=== PATIENT | male | born 1965 | race Caucasian/White ===

== ENCOUNTER 2022-02-06 15:32 | Emergency (ER) | payer OTHER ==
[2022-02-06 16:27] VITALS: PULSE 102; RESP 20; TEMP 98.1
--- NOTE | 2022-02-06 17:02 | ED ---
General Adult HPI - General Chief complaint: Psychiatric Symptoms Stated complaint: Mental Health Time Seen by Provider: 02/06/22 16:47 Source: patient, RN notes reviewed, old records reviewed Mode of arrival: ambulatory Limitations: no limitations - History of Present Illness Initial comments: 56-year-old male presented emergency department for evaluation. Patient is presenting at the request of his counselor. He has voiced thoughts of suicide with a plan to take alcohol and pills. He has not had a suicide attempt. He reports increased anxiety and depression. He states he has not been sleeping well. He is dealing with a great deal of stress currently. - Related Data Home Medications Medication Instructions Recorded Confirmed No Known Home Medications 02/06/22 02/06/22 Allergies Allergy/AdvReac Type Severity Reaction Status Date / Time No Known Allergies Allergy Verified 02/06/22 18:52 Review of Systems ROS Statement: Those systems with pertinent positive or pertinent negative responses have been documented in the HPI. ROS Other: All systems not noted in ROS Statement are negative. Past Medical History Past Medical History: No Reported History Past Surgical History: No Surgical Hx Reported Smoking Status: Current every day smoker Past Alcohol Use History: None Reported Past Drug Use History: None Reported General Exam Limitations: no limitations General appearance: alert, anxious Head exam: Present: atraumatic, normocephalic Eye exam: Present: normal appearance, PERRL ENT exam: Present: normal exam Neck exam: Present: normal inspection. Absent: tenderness, meningismus Respiratory exam: Present: normal lung sounds bilaterally. Absent: respiratory distress, wheezes Cardiovascular Exam: Present: regular rate, normal rhythm GI/Abdominal exam: Present: soft. Absent: distended, guarding, rebound Extremities exam: Present: normal inspection, normal capillary refill. Absent: pedal edema Neurological exam: Present: alert, oriented X3, CN II-XII intact. Absent: motor sensory deficit Psychiatric exam: Present: anxious, suicidal ideation Skin exam: Present: warm, dry, intact Course Vital Signs 02/06/22 16:20 Temperature 98.1 F Pulse Rate 102 H Respiratory 20 Rate Blood Pressure 140/100 O2 Sat by Pulse 97 Oximetry Medical Decision Making - Medical Decision Making Patient had been medically cleared he was evaluated by EPS and felt to be safe for discharge. I agree with this assessment. He has follow-up with his counselor tomorrow. Return parameters are discussed. The patient patient has signed a safety contract. - Lab Data Lab Results 02/06/22 Range/Units 17:17 Urine Opiates Screen Not Detected (NotDetected) Ur Oxycodone Screen Not Detected (NotDetected) Urine Methadone Screen Not Detected (NotDetected) Ur Propoxyphene Screen Not Detected (NotDetected) Ur Barbiturates Screen Not Detected (NotDetected) U Tricyclic Antidepress Not Detected (NotDetected) Ur Phencyclidine Scrn Not Detected (NotDetected) Ur Amphetamines Screen Not Detected (NotDetected) U Methamphetamines Scrn Not Detected (NotDetected) U Benzodiazepines Scrn Detected H (NotDetected) Urine Cocaine Screen Not Detected (NotDetected) U Marijuana (THC) Screen Not Detected (NotDetected) Disposition Clinical Impression: Depression Disposition: HOME SELF-CARE Condition: Fair Instructions (If sedation given, give patient instructions): Depression (ED) Is patient prescribed a controlled substance at d/c from ED?: No Referrals: Yolanda Bassett MD [Primary Care Provider] - 1-2 days Time of Disposition: 20:32
[2022-02-06 18:09] LABS: Amphetamine Screen,Urine Not Detected (NotDetected); Barbiturate Screen,Urine Not Detected (NotDetected); Benzodiazepines Screen,Urine Detected (NotDetected); Cocaine Screen,Urine Not Detected (NotDetected); Methadone Screen, Urine Not Detected (NotDetected); Opiate Screen,Urine Not Detected (NotDetected); Oxycodone Screen, Urine Not Detected (NotDetected); Phencyclidine Screen,Urine Not Detected (NotDetected); Tricyclic Antidepressant,Urine Not Detected (NotDetected); Urn Cannabinoid Scrn Not Detected (NotDetected)
[2022-02-06 20:51] VITALS: BP 138/98
== END 2022-02-06 20:52 | disposition home or self-care (01) ==
LOC: EC 15:32
DX: F32.A Depression, unspecified (principal); F17.200 Nicotine dependence, unspecified, uncomplicated
CPT/HCPCS: 80306; 82075; 99284

== ENCOUNTER 2022-02-10 00:06 | Inpatient (IN) | payer OTHER ==
[2022-02-10 03:21] LABS: Appearance,Urine Clear (Clear); Bilirubin,Urine Negative (Negative); Blood,Urine Negative (Negative); Color,Urine Light Yellow; Glucose,Urine (UA) Negative (Negative); Ketones,Urine Negative (Negative); Leukocyte Esterase,Urine Negative (Negative); Nitrite,Urine Negative (Negative); PH, Urine 6.5 (5.0-8.0); Protein,Urine Negative (Negative); Urobilinogen,Urine <2.0 mg/dL (<2.0)
[2022-02-10 03:35] LABS: Amphetamine Screen,Urine Not Detected (NotDetected); Barbiturate Screen,Urine Not Detected (NotDetected); Benzodiazepines Screen,Urine Detected (NotDetected); Cocaine Screen,Urine Not Detected (NotDetected); Methadone Screen, Urine Not Detected (NotDetected); Opiate Screen,Urine Not Detected (NotDetected); Oxycodone Screen, Urine Not Detected (NotDetected); Phencyclidine Screen,Urine Not Detected (NotDetected); Tricyclic Antidepressant,Urine Not Detected (NotDetected); Urn Cannabinoid Scrn Detected (NotDetected)
[2022-02-10] MEDS ORDERED: ACETAMINOPHEN TAB 325 MG TAB PO PRN (06:44)
[2022-02-10] MEDS ORDERED: MAG HYDROX/AL HYDROX/SIMETH 30 ML CUP PO PRN (06:44)
[2022-02-10] MEDS ORDERED: MAGNESIUM HYDROXIDE 2,400 MG/10 ML CUP PO PRN (06:44)
[2022-02-10] MEDS ORDERED: hydrOXYzine pamoate 25 MG CAP PO PRN (06:49)
[2022-02-10] MEDS ORDERED: hydrOXYzine HCL 50 MG/ML 1 ML VIAL IM PRN (06:49)
[2022-02-10] MEDS ORDERED: OLANZapine 10 MG VIAL IM PRN (06:51)
[2022-02-10] MEDS ORDERED: OLANZapine 5 MG TAB PO PRN (06:51)
--- NOTE | 2022-02-10 07:19 | P.MDCNMH ---
History of Present Illness H&P Date: 02/10/22 Chief Complaint: Anxiety Patient is a 56-year-old male. He was brought in to our psychiatric facility via EMS. Patient states that he was having increased level of anxiety and insomnia. He reported that he could not take the pain away. Currently he denies any suicidal ideation he denies any previous attempts of trying to hurt himself. He denies any medical history he reports that he has not seen a physician in a long time. Review of Systems All systems: negative Past Medical History Past Medical History: No Reported History History of Any Multi-Drug Resistant Organisms: None Reported Past Surgical History: No Surgical Hx Reported Smoking Status: Current every day smoker Medications and Allergies Home Medications Medication Instructions Recorded Confirmed Type No Known Home Medications 02/06/22 02/10/22 History Allergies Allergy/AdvReac Type Severity Reaction Status Date / Time No Known Allergies Allergy Verified 02/10/22 05:17 Physical Exam Osteopathic Statement: *. No significant issues noted on an osteopathic structural exam other than those noted in the History and Physical/Consult. Vitals: Vital Signs Temp Pulse Resp BP Pulse Ox 02/10/22 06:05 97.0 F L 79 16 138/81 95 Intake and Output 02/09/22 02/10/22 02/10/22 22:59 06:59 14:59 Other: Weight 67.358 kg - Constitutional General appearance: no acute distress - EENT Eyes: EOMI, PERRLA ENT: normal oropharynx - Neck Neck: normal ROM - Respiratory Respiratory: bilateral: CTA - Cardiovascular Rhythm: regular Heart sounds: normal: S1, S2 - Integumentary Integumentary: normal - Neurologic Neurologic: CNII-XII intact - Psychiatric Psychiatric: A&O x's 3 Cranial Nerve Examination - Cranial Nerves Cranial Nerve I- Olfactory: Intact Cranial Nerve II- Optic: Intact Cranial Nerve III- Oculomotor: Intact Cranial Nerve IV- Trochlear: Intact Cranial Nerve V- Trigeminal: Intact Cranial Nerve - Abducens: Intact Cranial Nerve VII- Facial: Intact Cranial Nerve VIII- Auditory: Intact Cranial Nerve IX- Glossopharyngeal: Intact Cranial Nerve X- Vagus: Intact Cranial Nerve XI- Accessory: Intact Cranial Nerve XII- Hypoglossal: Intact Results Labs: Abnormal Lab Results - Last 24 Hours (Table) 02/10/22 Range/Units 02:46 U Benzodiazepines Scrn Detected H (NotDetected) U Marijuana (THC) Screen Detected H (NotDetected) Assessment and Plan (1) Depression Current Visit: No Status: Acute Code(s): F32.A - DEPRESSION, UNSPECIFIED SNOMED Code(s): 52341567 Plan: Depression/anxiety -Management per inpatient psychiatric team -Current medications include olanzapine Tobacco abuse -He's on nicotine patch Patient states that he has not seen a primary care physician in a long time. Blood work is currently pending including TSH, hemoglobin A1c, lipid panel, comprehensive metabolic panel and a CBC. Medical team will follow as needed
[2022-02-10] MEDS: NICOTINE 14MG/24HR PATCH TRANSDERM SCH (08:44)
[2022-02-10] MEDS ORDERED: SERTRALINE 50 MG TAB PO STA (10:32)
--- NOTE | 2022-02-10 14:20 | P.HP ---
Psychiatric H&P - . H&P Date: 02/10/22 History & Physical: Allergies Allergy/AdvReac Type Severity Reaction Status Date / Time No Known Allergies Allergy Verified 02/10/22 05:17 Vital Signs Temp 97.0 F L 02/10/22 06:05 Pulse 79 02/10/22 06:05 Resp 16 02/10/22 06:05 BP 138/81 02/10/22 06:05 Pulse Ox 95 02/10/22 06:05 FiO2 Intake & Output 02/09/22 02/10/22 02/10/22 18:59 06:59 18:59 Weight 67.358 kg Laboratory Last Values Urine Color Light Yellow 02/10/22 02:46 Urine Appearance Clear (Clear) 02/10/22 02:46 Urine pH 6.5 (5.0-8.0) 02/10/22 02:46 Ur Specific [place] 1.010 (1.001-1.035) 02/10/22 02:46 Urine Protein Negative (Negative) 02/10/22 02:46 Urine Glucose (UA) Negative (Negative) 02/10/22 02:46 Urine Ketones Negative (Negative) 02/10/22 02:46 Urine Blood Negative (Negative) 02/10/22 02:46 Urine Nitrite Negative (Negative) 02/10/22 02:46 Urine Bilirubin Negative (Negative) 02/10/22 02:46 Urine Urobilinogen <2.0 mg/dL (<2.0) 02/10/22 02:46 Ur Leukocyte Esterase Negative (Negative) 02/10/22 02:46 Urine Opiates Screen Not Detected (NotDetected) 02/10/22 02:46 Ur Oxycodone Screen Not Detected (NotDetected) 02/10/22 02:46 Urine Methadone Screen Not Detected (NotDetected) 02/10/22 02:46 Ur Propoxyphene Screen Not Detected (NotDetected) 02/10/22 02:46 Ur Barbiturates Screen Not Detected (NotDetected) 02/10/22 02:46 U Tricyclic Antidepress Not Detected (NotDetected) 02/10/22 02:46 Ur Phencyclidine Scrn Not Detected (NotDetected) 02/10/22 02:46 Ur Amphetamines Screen Not Detected (NotDetected) 02/10/22 02:46 U Methamphetamines Scrn Not Detected (NotDetected) 02/10/22 02:46 U Benzodiazepines Scrn Detected (NotDetected) H 02/10/22 02:46 Urine Cocaine Screen Not Detected (NotDetected) 02/10/22 02:46 U Marijuana (THC) Screen Detected (NotDetected) H 02/10/22 02:46 Coronavirus (PCR) Not Detected (Not Detectd) 02/10/22 03:05 02/10/22 14:18 IDENTIFYING DATA: Patient is a , employed, 56-year-old male with no previous psychiatric history presented to the hospital for suicidal ideation HPI: Patient presented to the hospital on 02/10/2022, brought into the hospital for suicidal ideation and racing thoughts. The patient asked his children to call 911 and they did so out of a panic and concern for this patient. The patient reported to the EPS nurse that he "did not want to do this anymore. I don't want to think. I don't want to feel. I want to go to sleep and never wake up. I just can't do this anymore. It hurts." The patient does report that he has been feeling increasing stress in regards to his personal life as well as work life. He reports that he is currently having problems with his spends much of [place] the [facility] in December and June. The patient also expresses that he's been feeling stressed about his daughter who is getting . He reports that normally is able to throw himself into work in order to cope however he has been unable to do so. In regards to psychiatric symptoms, the patient reports significant symptoms of depression and anxiety. He does report very poor sleep, constant preoccupied thoughts, racing thoughts, sadness, decreased motivation, and extreme anxiety. Although the patient did endorse suicidal ideation while in the emergency department, the patient said ideation. He expresses that he does not really need to be admitted to the psychiatric unit. However after significant discussion, the patient was agreeable to signing himself onto the psychiatric unit. In regards to other psych symptoms, the patient denies any significant history of bipolar disorder. He reports no periods of excessive energy, grandiosity, or severe mood swings. The patient denies any auditory or visual hallucinations. He reports no paranoia or other delusions. The patient does report a significant history of substance abuse. He reports that he began drinking at the age of 17 and drank heavily up until his mid 20s. He reports that his alcohol has caused him significant dysfunction including 2 previous DUIs as well as an other than honorable discharge from the [facility] back in 1987. He reports that he went into rehab for alcohol use disorder in 1990. In regards to other substances, the patient reports smoking one and half packs per day. He denies any marijuana or illicit drug use. PAST PSYCHIATRIC HISTORY: Patient states that he has been previously diagnosed with anxiety and ADHD. Patient denies any previous psychiatric hospitalizations. Patient denies any psychiatric outpatient follow-up. Patient denies any history of suicide attempts in the past. PMH: Past Medical History: No Reported History History of Any Multi-Drug Resistant Organisms: None Reported Past Surgical History: No Surgical Hx Reported Smoking Status: Current every day smoker ALLERGIES: NO KNOWN DRUG ALLERGIES CHEMICAL DEPENDENCY HISTORY: as per HPI FAMILY PSYCHIATRIC/SUBSTANCE USE HISTORY: No family psychiatric history SOCIAL HISTORY: Patient is and is currently with his second . He has 3 children, one from a previous marriage, and 2 with his current . He reports that his eldest 33-year-old daughter is getting and they have a bridal shower scheduled next weekend. 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 He has his associates degree. He is currently employed and works for [employer]. MENTAL STATUS EXAM: General Appearance: Patient appears to be stated age is alert, directable, and attempts to cooperate. Patient appears to have slightly disheveled hygiene and grooming. Behavior: Patient is seated without any agitated behavior. Slightly elevated psychomotor activity. Speech: Patient's speech is fluent and nonpressured. Mood/Affect: Patient reports their mood is "feeling better," affect is guarded and anxious. Suicidality/Homicidality: Patient is denying any suicidal or homicidal ideation. Perceptions: Patient denies any visual hallucinations and denies any auditory hallucinations Though content/process: There is no evidence of any delusional thought content and thought process is linear and goal-directed. Memory and concentration: AOX3, grossly intact for the purposes of this session. Can spell "WORLD" backwards Judgment and insight: poor STRENGTHS/WEAKNESSES: Strength is that the patient has a supportive family, gainful employment, and relatively no psychiatric history. Weakness is that patient has poor insight and minimizes his symptoms. INTELLECT: average IMPRESSIONS: Major depressive disorder Generalized anxiety disorder Alcohol use disorder, in sustained remission Tobacco use disorder PLAN: -Patient is admitted under voluntary status to [facility] for stabilization of psychiatric symptoms and safety. Patient signed adult voluntary form and medication consent and is placed in patient's chart. -Medications : Will start patient on Zoloft 50 mg by mouth daily for depression/anxiety with plans to titrate to 100 mg over the weekend. Seroquel 100 mg by mouth at bedtime for insomnia/racing thoughts -Vistaril and Zyprexa PRN for agitation/aggression -Patient was counselled on substance abuse and desired to cut back on use -Patient was informed of the risks, benefits and side effects of the medication and patient verbally consented to taking the medications. Patient signed med consent form and was placed in chart. -Internal Medicine consult to perform medical evaluation and physical. -NRT - nicotine patch -SW on board for discharge planning. Encourage patient to participate in groups to work on coping skills. 02/10/22 14:20
[2022-02-10] MEDS: QUEtiapine 100 MG TAB PO SCH (20:35)
[2022-02-11 08:15] LABS: Basophils # (A) 0.2 k/uL (0-0.2); Basophils % (A) 1 %; Eosinophils # (A) 0.3 k/uL (0-0.7); Eosinophils % (A) 3 %; HGB 16.6 gm/dL (13.0-17.5); Lymphocytes # (A) 2.2 k/uL (1.0-4.8); Lymphocytes % (A) 19 %; MCH 29.2 pg (25.0-35.0); MCHC 31.2 g/dL (31.0-37.0); MCV 93.4 fL (80.0-100.0); Mean Platelet Volume 8.6; Monocytes # (A) 0.7 k/uL (0-1.0); Monocytes % (A) 6 %; Neutrophils # (A) 8.1 k/uL (1.3-7.7); Neutrophils % (A) 70 %; Platelet Count 185 k/uL (150-450); RBC 5.67 m/uL (4.30-5.90); RDW 13.7 % (11.5-15.5); WBC 11.5 k/uL (3.8-10.6)
[2022-02-11 08:27] LABS: ALT 23 U/L (4-49); AST 24 U/L (17-59); African American GFR (CKD) >90 (>60 ml/min/1.73 sqM); Albumin 4.2 g/dL (3.5-5.0); Alkaline Phosphatase 61 U/L (38-126); Anion Gap 7 mmol/L; Blood Urea Nitrogen 14 mg/dL (9-20); Calcium 9.3 mg/dL (8.4-10.2); Carbon Dioxide 25 mmol/L (22-30); Chloride 108 mmol/L (98-107); Glucose 94 mg/dL (74-99); Non-African American GFR(CKD) >90 (>60 ml/min/1.73 sqM); Potassium 4.4 mmol/L (3.5-5.1); Sodium 140 mmol/L (137-145); Total Bilirubin 0.5 mg/dL (0.2-1.3); Total Protein 6.9 g/dL (6.3-8.2)
[2022-02-11] MEDS: NICOTINE 14MG/24HR PATCH TRANSDERM SCH (08:49)
--- NOTE | 2022-02-11 08:55 | P.PN ---
Subjective Progress Note Date: 02/11/22 Principal diagnosis: Major depression recurrent severe EMILY Medications: the patient is just been increased to Zoloft 100 no negative side effects yet. He is also taking Seroquel 100 at night Subjective the patient says he slept 6 hours last night got up briefly and was able to sleep a few more hours. He still ruminates constantly about negatives and about the future will his marriage hold together? And littler things like tomorrow is Father's Day will his children know how to call him and will the connection be made. Typically of anxious people, rather than going to the desk and asking them to solve the problem he just worries about it. Objective: Anxious affect leans forward intensely but is oriented to person place time and circumstance. He has difficulty moving beyond issues to solutions. Assessment not actively suicidal but discouraged and no clear view to the future. Plan continue Seroquel and Zoloft and encourage him to work hard in group and especially to notice when he is worrying to catch himself and do the little he can and then work on letting it go. Objective - Vital Signs Vital signs: Vital Signs Temp 98.6 F 02/11/22 07:20 Pulse 87 02/11/22 07:20 Resp 16 02/10/22 06:05 BP 134/81 02/11/22 07:20 Pulse Ox 97 02/11/22 07:20 FiO2 - Labs CBC & Chem 7: 02/11/22 07:32 02/11/22 07:32 Labs: Abnormal Lab Results - Last 24 Hours (Table) 02/11/22 02/11/22 Range/Units 07:32 07:32 WBC 11.5 H (3.8-10.6) k/uL Neutrophils # 8.1 H (1.3-7.7) k/uL Chloride 108 H (98-107) mmol/L
[2022-02-11] MEDS ORDERED: SERTRALINE 25 MG TAB PO SCH (09:00)
[2022-02-11 11:50] LABS: Chol/HDL Ratio 4.24 Ratio; LDL Cholesterol,Calculated 142.6 mg/dL (0.0-131.0); VLDL Calculation 16.44 mg/dL (5.00-40.00)
[2022-02-11] MEDS ORDERED: SENNOSIDES 8.6 MG TAB PO PRN (19:03)
[2022-02-11] MEDS: QUEtiapine 100 MG TAB PO SCH (21:18)
[2022-02-12 07:03] VITALS: BP 140/66; PULSE 69; RESP 14; TEMP 97.7
[2022-02-12] MEDS: NICOTINE 14MG/24HR PATCH TRANSDERM SCH (09:37)
[2022-02-12] MEDS: SERTRALINE 100 MG TAB PO SCH (09:38)
--- NOTE | 2022-02-12 10:02 | P.PN ---
Subjective Progress Note Date: 02/12/22 Principal diagnosis: Major depression recurrent severe EMILY Medications: the patient is just been increased to Zoloft 100 no negative side effects yet. He is also taking Seroquel 100 at night Subjective the patient says he slept well last night got up briefly and was able to sleep a few more hours. He still ruminates constantly about negatives and about the future will his m christie hold together? He said that today he is doing much better at catching his, "what if". He then uses self talk to calm himself down and try to engage the situation. He points out that there isn't much to doing here and that makes it hard for him to distract himself from the negative rumination. Objective: Anxious affect leans forward intensely but is oriented to person place time and circumstance. He seemed a little less anxious no signs of psychosis and he does not acknowledge any, no suicidal or homicidal thoughts. On insight he seems to be starting to look at the future and what he can do to get control of his anxiety also pointed out that he has a history of ADHD and has been treated with Ritalin in the past. He has never taken Wellbutrin. Assessment not actively suicidal but discouraged but has more hope for the future.. My assessment is that his ADHD is not that problematic that he can manage it by reading up on how to live with and help his friends and family to understand his pattern and put in place tools habits and some humility. Plan: I told him to write out the ways in which his ADHD impinges on his life today. continue Seroquel and Zoloft and encourage him to work hard in group and especially to notice when he is worrying to catch himself and do the little he can and then work on letting it go. Objective - Vital Signs Vital signs: Vital Signs Temp 97.7 F 02/12/22 07:02 Pulse 69 02/12/22 07:02 Resp 14 02/12/22 07:02 BP 140/66 02/12/22 07:02 Pulse Ox 97 02/11/22 07:20 FiO2 Intake & Output 02/11/22 02/12/22 02/12/22 18:59 06:59 18:59 Weight 67.5 kg - Labs CBC & Chem 7: 02/11/22 07:32 02/11/22 07:32 Labs: Abnormal Lab Results - Last 24 Hours (Table) 02/11/22 Range/Units 07:32 Cholesterol 208.00 H (0.00-200.00) mg/dL LDL Cholesterol, Calc 142.6 H (0.0-131.0) mg/dL
[2022-02-12] MEDS: QUEtiapine 100 MG TAB PO SCH (20:24)
[2022-02-13] MEDS: SERTRALINE 100 MG TAB PO SCH (08:08)
[2022-02-13] MEDS: NICOTINE 14MG/24HR PATCH TRANSDERM SCH (08:08)
--- NOTE | 2022-02-13 13:23 | P.DS ---
Providers Date of admission: 02/10/22 05:04 Expected date of discharge: 02/13/22 Attending physician: Enrique Grady MD Consults: 02/10/22 06:44 Consult Physician Routine Consulting Provider: Joselin Jarquin Consult Reason/Comments: For H & P for Medical Follow Up Do you want consulting provider notified?: Yes Primary care physician: Stated None - Discharge Diagnosis(es) (1) Major depressive disorder with single episode Status: Acute Priority: High (2) Generalized anxiety disorder Status: Chronic Priority: Medium (3) Tobacco use disorder Status: Chronic Priority: Medium (4) Alcohol use disorder, moderate, in sustained remission Status: Chronic Priority: Low Hospital Course: Admission HPI: Patient is a , employed, 56-year-old male with no previous psychiatric history presented to the hospital for suicidal ideation HPI: Patient presented to the hospital on 02/10/2022, brought into the hospital for suicidal ideation and racing thoughts. The patient asked his children to call 911 and they did so out of a panic and concern for this patient. The patient reported to the EPS nurse that he "did not want to do this anymore. I don't want to think. I don't want to feel. I want to go to sleep and never wake up. I just can't do this anymore. It hurts." The patient does report that he has been feeling increasing stress in regards to his personal life as well as work life. He reports that he is currently having problems with his [place] much of [place] [facility] [place] and [place]. The patient also expresses that he's been feeling stressed about his daughter who is getting . He reports that normally is able to throw himself into work in order to cope however he has been unable to do so. In regards to psychiatric symptoms, the patient reports significant symptoms of depression and anxiety. He does report very poor sleep, constant preoccupied thoughts, racing thoughts, sadness, decreased motivation, and extreme anxiety. Although the patient did endorse suicidal ideation while in the emergency department, the patient said ideation. He expresses that he does not really need to be admitted to the psychiatric unit. However after significant discussion, the patient was agreeable to signing himself onto the psychiatric unit. In regards to other psych symptoms, the patient denies any significant history of bipolar disorder. He reports no periods of excessive energy, grandiosity, or severe mood swings. The patient denies any auditory or visual hallucinations. He reports no paranoia or other delusions. The patient does report a significant history of substance abuse. He reports that he began drinking at the age of 17 and drank heavily up until his mid 20s. He reports that his alcohol has caused him significant dysfunction including 2 previous DUIs as well as an other than honorable discharge from the [facility] back in 1987. He reports that he went into rehab for alcohol use disorder in 1990. In regards to other substances, the patient reports smoking one and half packs per day. He denies any marijuana or illicit drug use. Patient states that he has been previously diagnosed with anxiety and ADHD. Patient denies any previous psychiatric hospitalizations. Patient denies any psychiatric outpatient follow-up. Patient denies any history of suicide attempts in the past. Hospital course: Upon admission to the unit patient was initially presenting as extremely anxious and depressed. Patient was however directable and agreeable to commence treatment despite minimizing his suicidal ideation. Patient got along well with other patients on the unit and followed unit protocol. Patient was compliant with the medications and denied any side effects throughout hospital course. Patient was started on Zoloft and Seroquel for management of his depression/an xiety as well as his issues regarding insomnia and racing thoughts. Patient spoke of his stressors and engaged in therapy both group and individual. Patient was also seen by medical team for history and physical exam. Throughout the course of the hospitalization patient gradually improved with regards to his sleep, mood, and his target symptoms and suicidal ideation. On the day of discharge patient denied any suicidal or homicidal ideation, intention, and/or plan. Patient endorsed wanting to live for his health and family. The patient denied any access to guns or weapons. Patient denied any paranoia and did not endorse any delusions. Patient does have a significant history of substance abuse however was counseled on abstaining from all substances including alcohol and marijuana. Patient was offered however declined inpatient substance-abuse rehab. Patient was also counseled on the medications and need for regular compliance and was encouraged to follow-up with their outpatient appointment for mental health and also for primary care. Prior to discharge a family meeting will be arranged by elementary school social worker to answer any questions and ensure safety upon discharge. Mental status exam: General Appearance: Patient appears to be stated age is alert, pleasant, and cooperative. Patient is in no acute distress and has fair hygiene and grooming Behavior: Patient is calmly seated without any agitated behavior. Speech: Patient's speech is fluent and nonpressured. Mood/Affect: Patient reports their mood is "feeling better", affect is congruent and euthymic. Suicidality/Homicidality: Patient denies having any suicidal or homicidal ideation intent or plan. Perceptions: Patient denies any auditory or visual hallucinations. Though content/process: There is no evidence of any delusional thought content and thought process is linear and goal-directed. The patient is future oriented. Memory and concentration: AOX3, grossly intact for the purposes of this session. Can spell "WORLD" backwards correctly. Judgment and insight: Improved Vital Signs Temp 97.7 F 02/12/22 07:02 Pulse 69 02/12/22 07:02 Resp 14 02/12/22 07:02 BP 140/66 02/12/22 07:02 Pulse Ox 97 02/11/22 07:20 FiO2 Intake & Output 02/12/22 02/13/22 02/13/22 18:59 06:59 18:59 Weight 67.5 kg Laboratory Results WBC 11.5 k/uL (3.8-10.6) H 02/11/22 07:32 RBC 5.67 m/uL (4.30-5.90) 02/11/22 07:32 Hgb 16.6 gm/dL (13.0-17.5) 02/11/22 07:32 Hct 53.0 % (39.0-53.0) 02/11/22 07:32 MCV 93.4 fL (80.0-100.0) 02/11/22 07:32 MCH 29.2 pg (25.0-35.0) 02/11/22 07:32 MCHC 31.2 g/dL (31.0-37.0) 02/11/22 07:32 RDW 13.7 % (11.5-15.5) 02/11/22 07:32 Plt Count 185 k/uL (150-450) 02/11/22 07:32 MPV 8.6 02/11/22 07:32 Neutrophils % 70 % 02/11/22 07:32 Lymphocytes % 19 % 02/11/22 07:32 Monocytes % 6 % 02/11/22 07:32 Eosinophils % 3 % 02/11/22 07:32 Basophils % 1 % 02/11/22 07:32 Neutrophils # 8.1 k/uL (1.3-7.7) H 02/11/22 07:32 Lymphocytes # 2.2 k/uL (1.0-4.8) 02/11/22 07:32 Monocytes # 0.7 k/uL (0-1.0) 02/11/22 07:32 Eosinophils # 0.3 k/uL (0-0.7) 02/11/22 07:32 Basophils # 0.2 k/uL (0-0.2) 02/11/22 07:32 Sodium 140 mmol/L (137-145) 02/11/22 07:32 Potassium 4.4 mmol/L (3.5-5.1) 02/11/22 07:32 Chloride 108 mmol/L (98-107) H 02/11/22 07:32 Carbon Dioxide 25 mmol/L (22-30) 02/11/22 07:32 Anion Gap 7 mmol/L 02/11/22 07:32 BUN 14 mg/dL (9-20) 02/11/22 07:32 Creatinine 0.78 mg/dL (0.66-1.25) 02/11/22 07:32 Est GFR (CKD-EPI)AfAm >90 (>60 ml/min/1.73 sqM) 02/11/22 07:32 Est GFR (CKD-EPI)NonAf >90 (>60 ml/min/1.73 sqM) 02/11/22 07:32 Glucose 94 mg/dL (74-99) 02/11/22 07:[address] Glu mg/dL 108 02/11/22 07:32 Hemoglobin A1c 5.4 % (0.0-6.0) 02/11/22 07:32 Calcium 9.3 mg/dL (8.4-10.2) 02/11/22 07:32 Total Bilirubin 0.5 mg/dL (0.2-1.3) 02/11/22 07:32 AST 24 U/L (17-59) 02/11/22 07:32 ALT 23 U/L (4-49) 02/11/22 07:32 Alkaline Phosphatase 61 U/L (38-126) 02/11/22 07:32 Total Protein 6.9 g/dL (6.3-8.2) 02/11/22 07:32 Albumin 4.2 g/dL (3.5-5.0) 02/11/22 07:32 Triglycerides 82.20 mg/dL (0.00-149.00) 02/11/22 07:32 Cholesterol 208.00 mg/dL (0.00-200.00) H 02/11/22 07:32 LDL Cholesterol, Calc 142.6 mg/dL (0.0-131.0) H 02/11/22 07:32 VLDL Cholesterol, Calc 16.44 mg/dL (5.00-40.00) 02/11/22 07:32 HDL Cholesterol 49.00 mg/dL (40.00-60.00) 02/11/22 07:32 Cholesterol/HDL Ratio 4.24 Ratio 02/11/22 07:32 TSH 1.960 mIU/L (0.465-4.680) 02/11/22 07:32 Urine Color Light Yellow 02/10/22 02:46 Urine Appearance Clear (Clear) 02/10/22 02:46 Urine pH 6.5 (5.0-8.0) 02/10/22 02:46 Ur Specific [place] 1.010 (1.001-1.035) 02/10/22 02:46 Urine Protein Negative (Negative) 02/10/22 02:46 Urine Glucose (UA) Negative (Negative) 02/10/22 02:46 Urine Ketones Negative (Negative) 02/10/22 02:46 Urine Blood Negative (Negative) 02/10/22 02:46 Urine Nitrite Negative (Negative) 02/10/22 02:46 Urine Bilirubin Negative (Negative) 02/10/22 02:46 Urine Urobilinogen <2.0 mg/dL (<2.0) 02/10/22 02:46 Ur Leukocyte Esterase Negative (Negative) 02/10/22 02:46 Urine Opiates Screen Not Detected (NotDetected) 02/10/22 02:46 Ur Oxycodone Screen Not Detected (NotDetected) 02/10/22 02:46 Urine Methadone Screen Not Detected (NotDetected) 02/10/22 02:46 Ur Propoxyphene Screen Not Detected (NotDetected) 02/10/22 02:46 Ur Barbiturates Screen Not Detected (NotDetected) 02/10/22 02:46 U Tricyclic Antidepress Not Detected (NotDetected) 02/10/22 02:46 Ur Phencyclidine Scrn Not Detected (NotDetected) 02/10/22 02:46 Ur Amphetamines Screen Not Detected (NotDetected) 02/10/22 02:46 U Methamphetamines Scrn Not Detected (NotDetected) 02/10/22 02:46 U Benzodiazepines Scrn Detected (NotDetected) H 02/10/22 02:46 Urine Cocaine Screen Not Detected (NotDetected) 02/10/22 02:46 U Marijuana (THC) Screen Detected (NotDetected) H 02/10/22 02:46 Coronavirus (PCR) Not Detected (Not Detectd) 02/10/22 03:05 Allergies Allergy/AdvReac Type Severity Reaction Status Date / Time No Known Allergies Allergy Verified 02/10/22 05:17 Impression: Major depressive disorder Generalized anxiety disorder Alcohol use disorder, in sustained remission Tobacco use disorder Plan: -Continue with discharge today as patient has improved and stabilized psychiatrically and is not currently an imminent threat to himself and/or others. Patient has numerous protective factors including a supportive family, future orientation, and is currently active in treatment. Minimal risk factors aside from a history of substance abuse which is currently not issue for the patient. -Continue medications: Seroquel 100 mg by mouth at bedtime for mood stabilization/augmentation Zoloft 100 mg by mouth daily for depression/anxiety -Patient was counseled on the need for medication compliance and appropriate follow-up at mental health and also primary care for medical issues. Patient verbalized understanding and agreed. -Social work to arrange for and conduct family meeting to ensure safety upon discharge and answer any questions/concerns. Social work also to arrange for patients follow up appointments with [facility] for psychiatric care along with follow up with primary care provider. -Patient counseled on abstaining from recreational drugs and marijuana and alcohol. Was informed/educated on the adverse effects on their physical and mental health. Patient verbally agreed and understood. -Patient was instructed to return to the hospital or seek immediate medical care if their psychiatric or medical symptoms do worsen or reoccur. -Psychoeducation and supportive therapy provided to patient. Risks and benefits of pharmacological treatment versus the risks and benefits of nontreatment weight and discussed. Informed consent discussion held. Common side effects of psychotropics discussed such as, but not limited to headache, GI disturbance, sexual dysfunction, movement disorders, sedation, and orthostatic hypotension. Life threatening and blackbox warnings of prescribed medications also discussed. Potential risks of operating a vehicle or heavy machinery discussed with patient at length. Advised on importance of compliance and a reliable and responsible manner. Patient advised to review FDA consumer labeling of all medications prior to taking. Patient verbalized understanding of potential risks, and agrees with current treatment plan. Patient advised to medically contact physician/emergency personnel if any acute changes in condition occur. Patient Condition at Discharge: Stable Plan - Discharge Summary Discharge Rx Participant: No New Discharge Prescriptions: New QUEtiapine [SEROquel] 100 mg PO HS 30 Days tab Sertraline [Zoloft] 100 mg PO DAILY 30 Days tab Nicotine 14Mg/24Hr Patch [Habitrol] 1 patch TRANSDERM DAILY 30 Days patch Discharge Medication List Nicotine 14Mg/24Hr Patch [Habitrol] 1 patch TRANSDERM DAILY 30 Days patch 02/13/22 [Rx] QUEtiapine [SEROquel] 100 mg PO HS 30 Days tab 02/13/22 [Rx] Sertraline [Zoloft] 100 mg PO DAILY 30 Days tab 02/13/22 [Rx] Follow up Appointment(s)/Referral(s): [facility] [Outside] - 02/15/22 2:00 pm (Daysi) None,Stated [Primary Care Provider] - 1 Week [facility] [NON-STAFF] - 1 Week Patient Instructions/Handouts: How to Stop Smoking (DC), Depression (DC) Activity/Diet/Wound Care/Special Instructions: Activity and diet as tolerated. Avoid the use of street drugs and alcohol. Take all medications as prescribed. When you are in need of refills on your medications please contact your medical provider and/or outpatient psychiatrist to have this done. Please go to scheduled outpatient appointment for aftercare treatment. If symptoms return or become worse, call the crisis line at and/or go to the nearest emergency room for evaluation Discharge Disposition: HOME SELF-CARE
== END 2022-02-13 11:45 | disposition home or self-care (01) | DRG 885 ==
LOC: EC 00:06 → 3MHU 05:04
PROVIDERS: ADMIT Psychiatry & Neurology Psychiatry; ATTEND Psychiatry & Neurology Psychiatry
DX: F33.2 Major depressive disorder, recurrent severe without psychotic features (principal); R45.851 Suicidal ideations; F41.1 Generalized anxiety disorder; F10.21 Alcohol dependence, in remission; F17.210 Nicotine dependence, cigarettes, uncomplicated; F90.9 Attention-deficit hyperactivity disorder, unspecified type; G47.00 Insomnia, unspecified; Z63.0 Problems in relationship with spouse or partner; Z79.899 Other long term (current) drug therapy; Z20.822 Contact with and (suspected) exposure to COVID-19; Z71.41 Alcohol abuse counseling and surveillance of alcoholic; Z71.51 Drug abuse counseling and surveillance of drug abuser; Z71.89 Other specified counseling
CPT/HCPCS: 80053; 80061; 80306; 81003; 83036; 84443; 85025; 87635

== ENCOUNTER 2024-02-16 12:03 | Inpatient (IN) | payer OTHER ==
[2024-02-16 13:42] LABS: Amphetamine Screen,Urine Not Detected (NotDetected); Barbiturate Screen,Urine Not Detected (NotDetected); Benzodiazepines Screen,Urine Not Detected (NotDetected); Cocaine Screen,Urine Not Detected (NotDetected); Methadone Screen, Urine Not Detected (NotDetected); Opiate Screen,Urine Not Detected (NotDetected); Oxycodone Screen, Urine Not Detected (NotDetected); Phencyclidine Screen,Urine Not Detected (NotDetected); Tricyclic Antidepressant,Urine Not Detected (NotDetected); Urn Cannabinoid Scrn Not Detected (NotDetected)
--- NOTE | 2024-02-16 13:54 | ED ---
Psych HPI - General Chief Complaint: Psychiatric Symptoms Stated Complaint: Mental health eval Time Seen by Provider: 02/16/24 12:16 Source: patient, RN notes reviewed Mode of arrival: ambulatory Limitations: no limitations - History of Present Illness Initial Comments: 58-year-old male presents emergency department with family for concerns of psychiatric issues. Patient states he started to feel depressed, suicidal states he has to drink to make his days better he has been drinking daily which he is recovering alcoholic. He states he drinks at least a pint a day. Patient denies any physical complaints. Patient has been taking his psychiatric meds as directed he has been hospitalized 1 year ago for similar reasons. - Related Data Previous Rx's Medication Instructions Recorded Nicotine 14Mg/24Hr Patch [Habitrol] 1 patch TRANSDERM DAILY 30 Days 02/13/22 patch QUEtiapine [SEROquel] 100 mg PO HS 30 Days tab 02/13/22 Sertraline [Zoloft] 100 mg PO DAILY 30 Days tab 02/13/22 Allergies Allergy/AdvReac Type Severity Reaction Status Date / Time No Known Allergies Allergy Verified 02/16/24 12:36 Review of Systems ROS Statement: Those systems with pertinent positive or pertinent negative responses have been documented in the HPI. ROS Other: All systems not noted in ROS Statement are negative. Past Medical History Past Medical History: Hyperlipidemia, Hypertension, Myocardial Infarction ([place]) Additional Past Medical History / Comment(s): alcoholism, History of Any Multi-Drug Resistant Organisms: None Reported Past Surgical History: Heart Catheterization With Stent Past Psychological History: Anxiety, Depression Smoking Status: Current every day smoker Past Alcohol Use History: Abuse, Daily, Heavy Past Drug Use History: None Reported General Exam Limitations: no limitations General appearance: alert, in no apparent distress Head exam: Present: atraumatic, normocephalic, normal inspection Eye exam: Present: normal appearance, PERRL, EOMI. Absent: scleral icterus, conjunctival injection, periorbital swelling ENT exam: Present: normal exam, normal oropharynx, mucous membranes moist Neck exam: Present: normal inspection, full ROM. Absent: tenderness, meningismus, lymphadenopathy Respiratory exam: Present: normal lung sounds bilaterally. Absent: respiratory distress, wheezes, rales, rhonchi, stridor Cardiovascular Exam: Present: normal rhythm, tachycardia, normal heart sounds. Absent: systolic murmur, diastolic murmur, rubs, gallop, clicks GI/Abdominal exam: Present: soft, normal bowel sounds. Absent: distended, tenderness, guarding, rebound, rigid Neurological exam: Present: alert, oriented X3 Psychiatric exam: Present: depressed Skin exam: Present: warm, dry, intact, normal color. Absent: rash Course Vital Signs 02/16/24 02/16/24 12:32 16:21 Temperature 98.5 F 98.0 F Pulse Rate 111 H 80 Respiratory 15 16 Rate Blood Pressure 148/90 138/82 O2 Sat by Pulse 95 96 Oximetry Medical Decision Making - Medical Decision Making Was pt. sent in by a medical professional or institution (, PA, DIRECTOR RETIREMENT, urgent care, hospital, or group home...) When possible be specific @ -No Did you speak to anyone other than the patient for history (EMS, parent, family, police, friend...)? What history was obtained from this source @ -No Did you review nursing and triage notes (agree or disagree)? Why? @ -I reviewed and agree with nursing and triage notes Were old charts reviewed (outside hosp., previous admission, EMS record, old EKG, old radiological studies, urgent care reports/EKG's, group home records)? Report findings @ -No old charts were reviewed Differential Diagnosis (chest pain, altered mental status, abdominal pain women, abdominal pain men, vaginal bleeding, weakness, fever, dyspnea, syncope, headache, dizziness, GI bleed, back pain, seizure, CVA, palpatations, mental health, musculoskeletal)? @ -Differential Mental Health Depression, anxiety, bipolar, psychosis, schizophrenia, borderline personality, situational depression, adjustment disorder, behavioral disorder, brain tumor, malingering, substance abuse, encephalopathy, medication reaction, dementia, hypothyroidism, degenerative neurologic disorder, lupus.... This is not meant to be all-inclusive list EKG interpreted by me (3pts min.). @ -[None X-rays interpreted by me (1pt min.). @ -None done CT interpreted by me (1pt min.). @ -None done U/S interpreted by me (1pt. min.). @ -None done What testing was considered but not performed or refused? (CT, X-rays, U/S, labs)? Why? @ -None What meds were considered but not given or refused? Why? @ -None Did you discuss the management of the patient with other professionals (murali bah i.e. , PA, DIRECTOR RETIREMENT, lab, RT, psych nurse, adoption social worker, client finance analyst, teacher, youth corrections officer, wrapper caser)? Give summary @ -EPS evaluated the patient recommended inpatient treatment with psychiatry Was smoking cessation discussed for >3mins.? @ -No Was critical care preformed (if so, how long)? @ -No Were there social determinants of health that impacted care today? How? (Homelessness, low income, unemployed, alcoholism, drug addiction, transportation, low edu. Level, literacy, decrease access to med. care, fci, rehab)? @ -No Was there de-escalation of care discussed even if they declined (Discuss DNR or withdrawal of care, Hospice)? DNR status @ -No What co-morbidities impacted this encounter? (DM, HTN, Smoking, COPD, CAD, Cancer, CVA, ARF, Chemo, Hep., AIDS, mental health diagnosis, sleep apnea, morbid obesity)? @ -None Was patient admitted / discharged? Hospital course, mention meds given and route, prescriptions, significant lab abnormalities, going to OR and other pertinent info. @ -[Admitted to 3 W. Undiagnosed new problem with uncertain prognosis? @ -No Drug Therapy requiring intensive monitoring for toxicity (Heparin, Nitro, Insulin, Cardizem)? @ -No Were any procedures done? @ -No Diagnosis/symptom? @ -Depression, suicide ideation alcohol abuse Acute, or Chronic, or Acute on Chronic? @ -Acute Uncomplicated (without systemic symptoms) or Complicated (systemic symptoms)? @ -Complicated Side effects of treatment? @ -No Exacerbation, Progression, or Severe Exacerbation? @ -No Poses a threat to life or bodily function? How? (Chest pain, [place], [place], pneumonia, PE, COPD, DKA, ARF, appy, cholecystitis, CVA, Diverticulitis, Homicidal, Suicidal, threat to staff... and all critical care pts) @ -Yes patient is suicidal - Lab Data Result diagrams: 02/16/24 13:19 02/16/24 13:19 Lab Results 02/16/24 02/16/24 02/16/24 Range/Units 13:19 13:19 13:19 WBC 13.4 H (3.8-10.6) k/uL RBC 5.63 (4.30-5.90) m/uL Hgb 17.0 (13.0-17.5) gm/dL Hct 51.1 (39.0-53.0) % MCV 90.8 (80.0-100.0) fL MCH 30.3 (25.0-35.0) pg MCHC 33.3 (31.0-37.0) g/dL RDW 13.4 (11.5-15.5) % Plt Count 210 (150-450) k/uL MPV 8.1 Neutrophils % 76 % Lymphocytes % 13 % Monocytes % 6 % Eosinophils % 3 % Basophils % 1 % Neutrophils # 10.2 H (1.3-7.7) k/uL Lymphocytes # 1.8 (1.0-4.8) k/uL Monocytes # 0.9 (0-1.0) k/uL Eosinophils # 0.4 (0-0.7) k/uL Basophils # 0.1 (0-0.2) k/uL Sodium 136 L (137-145) mmol/L Potassium 4.1 (3.5-5.1) mmol/L Chloride 107 (98-107) mmol/L Carbon Dioxide 20 L (22-30) mmol/L Anion Gap 9 mmol/L BUN 8 L (9-20) mg/dL Creatinine 0.53 L (0.66-1.25) mg/dL Est GFR (CKD-EPI)AfAm >90 (>60 ml/min/1.73 sqM) Est GFR (CKD-EPI)NonAf >90 (>60 ml/min/1.73 sqM) Glucose 94 (74-99) mg/dL Calcium 10.1 (8.4-10.2) mg/dL Magnesium 1.9 (1.6-2.3) mg/dL Total Bilirubin 0.9 (0.2-1.3) mg/dL AST 44 (17-59) U/L ALT 39 (4-49) U/L Alkaline Phosphatase 132 H (38-126) U/L Total Protein 7.2 (6.3-8.2) g/dL Albumin 4.7 (3.5-5.0) g/dL Urine Opiates Screen Not Detected (NotDetected) Ur Oxycodone Screen Not Detected (NotDetected) Urine Methadone Screen Not Detected (NotDetected) Ur Barbiturates Screen Not Detected (NotDetected) U Tricyclic Antidepress Not Detected (NotDetected) Ur Phencyclidine Scrn Not Detected (NotDetected) Ur Amphetamines Screen Not Detected (NotDetected) U Methamphetamines Scrn Not Detected (NotDetected) U Benzodiazepines Scrn Not Detected (NotDetected) Urine Cocaine Screen Not Detected (NotDetected) U Marijuana (THC) Screen Not Detected (NotDetected) Disposition Clinical Impression: Depression, Suicidal ideation, Alcohol abuse Disposition: TRANSFER TO PSYCH HOSP/UNIT Referrals: None,Stated [Primary Care Provider] - 1-2 days Time of Disposition: 16:30
[2024-02-16 14:08] LABS: ALT 39 U/L (4-49); AST 44 U/L (17-59); African American GFR (CKD) >90 (>60 ml/min/1.73 sqM); Albumin 4.7 g/dL (3.5-5.0); Alkaline Phosphatase 132 U/L (38-126); Anion Gap 9 mmol/L; Blood Urea Nitrogen 8 mg/dL (9-20); Calcium 10.1 mg/dL (8.4-10.2); Carbon Dioxide 20 mmol/L (22-30); Chloride 107 mmol/L (98-107); Glucose 94 mg/dL (74-99); Magnesium 1.9 mg/dL (1.6-2.3); Non-African American GFR(CKD) >90 (>60 ml/min/1.73 sqM); Potassium 4.1 mmol/L (3.5-5.1); Sodium 136 mmol/L (137-145); Total Bilirubin 0.9 mg/dL (0.2-1.3); Total Protein 7.2 g/dL (6.3-8.2)
[2024-02-16 14:11] LABS: Basophils # (A) 0.1 k/uL (0-0.2); Basophils % (A) 1 %; Eosinophils # (A) 0.4 k/uL (0-0.7); Eosinophils % (A) 3 %; HCT 51.1 % (39.0-53.0); Lymphocytes # (A) 1.8 k/uL (1.0-4.8); Lymphocytes % (A) 13 %; MCH 30.3 pg (25.0-35.0); MCHC 33.3 g/dL (31.0-37.0); MCV 90.8 fL (80.0-100.0); Mean Platelet Volume 8.1; Monocytes # (A) 0.9 k/uL (0-1.0); Monocytes % (A) 6 %; Neutrophils # (A) 10.2 k/uL (1.3-7.7); Neutrophils % (A) 76 %; Platelet Count 210 k/uL (150-450); RBC 5.63 m/uL (4.30-5.90); RDW 13.4 % (11.5-15.5); WBC 13.4 k/uL (3.8-10.6)
[2024-02-16] MEDS: SODIUM CHLORIDE 0.9% 1,000 ML IV ONE (15:54)
[2024-02-16] MEDS: SODIUM CHLORIDE 0.9% 500 ML 500 ML IV ONE (15:55)
[2024-02-16] MEDS ORDERED: IBUPROFEN 600 MG TAB PO PRN (17:36)
[2024-02-16] MEDS ORDERED: MAG HYDROX/AL HYDROX/SIMETH 355 ML BOTTLE PO PRN (17:36)
[2024-02-16] MEDS ORDERED: LORazepam 1 MG TAB PO PRN (17:36)
[2024-02-16] MEDS ORDERED: LORazepam 2 MG/ML INJ IM PRN (17:36)
[2024-02-16] MEDS ORDERED: ACETAMINOPHEN TAB 325 MG TAB PO PRN (17:36)
[2024-02-16] MEDS ORDERED: MAGNESIUM HYDROXIDE 2,400 MG/30 ML CUP PO PRN (17:36)
[2024-02-16] MEDS: NICOTINE 14MG/24HR PATCH TRANSDERM SCH (20:56)
[2024-02-16] MEDS: LORazepam 1 MG TAB PO PRN (21:01)
[2024-02-16] MEDS: ATORVASTATIN 80 MG TAB PO SCH (21:56)
[2024-02-17 02:50] LABS: Appearance,Urine Clear (Clear); Bilirubin,Urine Negative (Negative); Blood,Urine Moderate (Negative); Color,Urine Colorless; Glucose,Urine (UA) Negative (Negative); Ketones,Urine Trace (Negative); Leukocyte Esterase,Urine Negative (Negative); Nitrite,Urine Negative (Negative); PH, Urine 6.5 (5.0-8.0); Protein,Urine Negative (Negative); RBC,Urine 3 /hpf (0-5); Specific Gravity,Urine 1.005 (1.001-1.035); Urobilinogen,Urine <2.0 mg/dL (<2.0); WBC,Urine <1 /hpf (0-5)
[2024-02-17] MEDS ORDERED: NICOTINE 14MG/24HR PATCH TRANSDERM SCH (09:00)
[2024-02-17] MEDS: PRASUGREL 10 MG TAB PO SCH (09:03)
[2024-02-17] MEDS: ASPIRIN 81 MG PO SCH (09:04)
[2024-02-17] MEDS: METOPROLOL SUCCINATE (ER) 50 MG TAB.ER.24H PO SCH (09:04)
[2024-02-17 09:41] LABS: Chol/HDL Ratio 1.93 Ratio; LDL Cholesterol,Calculated 81.6 mg/dL (0.0-131.0)
[2024-02-17] MEDS: LORazepam 1 MG TAB PO PRN (10:00)
[2024-02-17] MEDS: DULoxetine HCL 30 MG CAPSULE.DR PO SCH (10:00)
[2024-02-17] MEDS ORDERED: traZODone HCL 50 MG TAB PO PRN (10:32)
--- NOTE | 2024-02-17 10:34 | P.HP ---
Psychiatric H&P - . H&P Date: 02/17/24 History & Physical: Allergies Allergy/AdvReac Type Severity Reaction Status Date / Time No Known Allergies Allergy Verified 02/16/24 17:17 Vital Signs Temp 98.0 F 02/16/24 20:02 Pulse 75 02/17/24 07:07 Resp 18 02/16/24 20:02 BP 147/98 02/17/24 07:07 Pulse Ox 98 02/16/24 20:02 FiO2 Intake & Output 02/16/24 02/17/24 02/17/24 18:59 06:59 18:59 Weight 65.771 kg 64.212 kg Laboratory Last Values WBC 13.4 k/uL (3.8-10.6) H 02/16/24 13:19 RBC 5.63 m/uL (4.30-5.90) 02/16/24 13:19 Hgb 17.0 gm/dL (13.0-17.5) 02/16/24 13:19 Hct 51.1 % (39.0-53.0) 02/16/24 13:19 MCV 90.8 fL (80.0-100.0) 02/16/24 13:19 MCH 30.3 pg (25.0-35.0) 02/16/24 13:19 MCHC 33.3 g/dL (31.0-37.0) 02/16/24 13:19 RDW 13.4 % (11.5-15.5) 02/16/24 13:19 Plt Count 210 k/uL (150-450) 02/16/24 13:19 MPV 8.1 02/16/24 13:19 Neutrophils % 76 % 02/16/24 13:19 Lymphocytes % 13 % 02/16/24 13:19 Monocytes % 6 % 02/16/24 13:19 Eosinophils % 3 % 02/16/24 13:19 Basophils % 1 % 02/16/24 13:19 Neutrophils # 10.2 k/uL (1.3-7.7) H 02/16/24 13:19 Lymphocytes # 1.8 k/uL (1.0-4.8) 02/16/24 13:19 Monocytes # 0.9 k/uL (0-1.0) 02/16/24 13:19 Eosinophils # 0.4 k/uL (0-0.7) 02/16/24 13:19 Basophils # 0.1 k/uL (0-0.2) 02/16/24 13:19 Sodium 136 mmol/L (137-145) L 02/16/24 13:19 Potassium 4.1 mmol/L (3.5-5.1) 02/16/24 13:19 Chloride 107 mmol/L (98-107) 02/16/24 13:19 Carbon Dioxide 20 mmol/L (22-30) L 02/16/24 13:19 Anion Gap 9 mmol/L 02/16/24 13:19 BUN 8 mg/dL (9-20) L 02/16/24 13:19 Creatinine 0.53 mg/dL (0.66-1.25) L 02/16/24 13:19 Est GFR (CKD-EPI)AfAm >90 (>60 ml/min/1.73 sqM) 02/16/24 13:19 Est GFR (CKD-EPI)NonAf >90 (>60 ml/min/1.73 sqM) 02/16/24 13:19 Glucose 94 mg/dL (74-99) 02/16/24 13:19 Calcium 10.1 mg/dL (8.4-10.2) 02/16/24 13:19 Magnesium 1.9 mg/dL (1.6-2.3) 02/16/24 13:19 Total Bilirubin 0.9 mg/dL (0.2-1.3) 02/16/24 13:19 AST 44 U/L (17-59) 02/16/24 13:19 ALT 39 U/L (4-49) 02/16/24 13:19 Alkaline Phosphatase 132 U/L (38-126) H 02/16/24 13:19 Total Protein 7.2 g/dL (6.3-8.2) 02/16/24 13:19 Albumin 4.7 g/dL (3.5-5.0) 02/16/24 13:19 Urine Color Colorless 02/16/24 13:19 Urine Appearance Clear (Clear) 02/16/24 13:19 Urine pH 6.5 (5.0-8.0) 02/16/24 13:19 Ur Specific [place] 1.005 (1.001-1.035) 02/16/24 13:19 Urine Protein Negative (Negative) 02/16/24 13:19 Urine Glucose (UA) Negative (Negative) 02/16/24 13:19 Urine Ketones Trace (Negative) H 02/16/24 13:19 Urine Blood Moderate (Negative) H 02/16/24 13:19 Urine Nitrite Negative (Negative) 02/16/24 13:19 Urine Bilirubin Negative (Negative) 02/16/24 13:19 Urine Urobilinogen <2.0 mg/dL (<2.0) 02/16/24 13:19 Ur Leukocyte Esterase Negative (Negative) 02/16/24 13:19 Urine RBC 3 /hpf (0-5) 02/16/24 13:19 Urine WBC <1 /hpf (0-5) 02/16/24 13:19 Urine Opiates Screen Not Detected (NotDetected) 02/16/24 13:19 Ur Oxycodone Screen Not Detected (NotDetected) 02/16/24 13:19 Urine Methadone Screen Not Detected (NotDetected) 02/16/24 13:19 Ur Barbiturates Screen Not Detected (NotDetected) 02/16/24 13:19 U Tricyclic Antidepress Not Detected (NotDetected) 02/16/24 13:19 Ur Phencyclidine Scrn Not Detected (NotDetected) 02/16/24 13:19 Ur Amphetamines Screen Not Detected (NotDetected) 02/16/24 13:19 U Methamphetamines Scrn Not Detected (NotDetected) 02/16/24 13:19 U Benzodiazepines Scrn Not Detected (NotDetected) 02/16/24 13:19 Urine Cocaine Screen Not Detected (NotDetected) 02/16/24 13:19 U Marijuana (THC) Screen Not Detected (NotDetected) 02/16/24 13:19 SARS-CoV-2 (PCR) Not Detected (Not Detectd) 02/16/24 16:01 02/17/24 08:48 IDENTIFYING DATA: Patient is a , employed, 58-year-old male who is presenting with suicidal ideation HPI: Patient brought himself into the emergency department along with the help of his due to suicidal ideation and inability to care for himself. Recent str essors include increased alcohol intake and him and his considering divorce. Patient has been drinking from 0.5 pint up to 1 pint for the past 1 week. Longest period of sobriety was 6 weeks in 2023. In conjunction with increasing alcohol intake, patient has noticed depression worsening over the past 1 year with significant worsening this year since his myocardial infarction in August 2023. He admits to drinking more heavily since then also. He reports getting 8 hours of sleep generally without major problems. He endorses poor appetite, poor self care, and low energy. When asked about concentration, he describes inner restlessness. He reports decreased pleasure with work, which he used to enjoy a lot more in the past. Patient reports having significant anxiety on a daily basis. He endorses worrying about numerous things in his life. He endorses restlessness, having difficulty relaxing, feeling on edge, and trouble completing tasks due to anxiety. The patient does report a significant history of substance abuse. He reports that he began drinking at the age of 17 and drank heavily up until his mid 20s. He reports that his alcohol has caused him significant dysfunction including 2 previous DUIs as well as an other than honorable discharge from the [facility] back in 1987. He reports that he went into rehab for alcohol use disorder in 1990. In regards to other substances, the patient reports smoking 1ppd. He denies any marijuana or illicit drug use. He cannot recall his current psychotropic medications. However, he reports compliance with the medications and states that he places them in a pillbox and does not recall names. He denies symptoms consistent with jose and psychosis. He denies auditory and visual hallucinations, paranoia, homicidal ideation, as asked and assessed. PSYCH HX: Patient was hospitalized in 2021 here for major depression and was discharged on Zoloft and Seroquel at the time. Denies hx of suicide attempts He was receiving psychiatric care from [facility] and a therapist at [facility]. He was on Zoloft and Buspar. He states that he has not noticed a difference with his psychiatric medications improving his mental health. PMH: Past Medical History: Hyperlipidemia, Hypertension, Myocardial Infarction (Aug 2023) Additional Past Medical History / Comment(s): alcoholism, History of Any Multi-Drug Resistant Organisms: None Reported Past Surgical History: Heart Catheterization With Stent Past Psychological History: Anxiety, Depression Smoking Status: Current every day smoker Past Alcohol Use History: Abuse, Daily, Heavy Past Drug Use History: None Reported ALLERGIES: NKDA PCP: Denies. 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 He has 3 children, one from a previous marriage, and 2 with his current . 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 He has his associates degree. He is currently employed and works for [employer]. Legal problems: 2 DUIs in 1990 FAM PSYCH HX: Father: alcohol Suicide attempts: Denies MENTAL STATUS EXAM: General Appearance: Patient appears to be stated age is alert, directable, and attempts to cooperate. Pedro Luis complexion. Patient appears to have slightly disheveled hygiene and grooming. Behavior: Patient is seated without any agitated behavior. Slightly internally agitated and restlessness Speech: Patient's speech is fluent and nonpressured. Mood/Affect: Patient reports their mood is "sh" affect is depressed and tearful Suicidality/Homicidality: Patient is denying any homicidal ideation. Admits to passive suicidal ideation Perceptions: Patient denies any visual hallucinations and denies any auditory hallucinations Though content/process: There is no evidence of any delusional thought content and thought process is linear and goal-directed. Memory and concentration: AOX3, grossly intact for the purposes of this session. Can spell "WORLD" backwards Judgment and insight: Fair STRENGTHS/WEAKNESSES: Strength is his social support and seeking mental health help. Weaknesses comorbid alcohol use INTELLECT: average IMPRESSIONS: Major depressive disorder Generalized anxiety disorder Alcohol use disorder, severe, in withdrawal Tobacco use disorder PLAN: -Patient is admitted under voluntary status to MHU for stabilization of psychiatric symptoms and safety. Patient signed adult voluntary form and medication consent and is placed in patient's chart. -Medications : Start Cymbalta 30 mg daily for mood and anxiety. Start naltrexone 50 mg daily for alcohol abstinence starting tomorrow. Trazodone 50 mg as needed for sleep CIWA protocol with Ativan for alcohol withdrawal. Vitamin replacement -Nicotine patch -Patient was counselled on substance abuse and desired to cut back on use. Discussed the effects of alcohol on brain, aging, and mental health. Motivational interviewing. -Patient was informed of the risks, benefits and side effects of the medication and patient verbally consented to taking the medications. Patient signed med consent form and was placed in chart. -Internal Medicine consult to perform medical evaluation and physical. -SW on board for discharge planning. Encourage patient to participate in groups to work on coping skills. 02/17/24 09:11 02/17/24 10:24 02/17/24 10:34
--- NOTE | 2024-02-18 00:39 | P.MDCNMH ---
History of Present Illness H&P Date: 02/18/24 Chief Complaint: Medical evaluation 58-year-old male with arterial disease Patient coming in for evaluation depression and suicidal ideation he admits to heavy drinking for at least the past 7 to 10 days when he relapsed however currently denies any symptoms of alcohol withdrawal. He claims that he used to be very healthy up until August when he had a heart attack requiring 2 stents since then he has been taking a bunch of medications that he does not know them At this point he denies any chest pain trouble breathing denies any fevers chills nausea vomiting abdominal pain changes in bowel or urinary habits denies any GI bleeding Patient is attempting to cut back on smoking however he denies any illicit drugs review of systems Pertinent positives as noted in HPI. All other systems were reviewed and are negative on exam Constitutional: No acute distress, conversant Eyes: Anicteric sclerae, moist conjunctiva, Pupils equal round reactive to light ENMT: NC/AT Oropharynx clear, no erythema, or exudates Lungs: Clear to auscultation Clear to percussion Normal respiratory effort, no accessory muscle use Cardiovascular: Heart regular in rate and rhythm, No murmurs, gallops, or rubs No peripheral edema Abdominal: Soft Nontender, no guarding, rebound or rigidity Abdomen moving with respiration Normoactive bowel sounds Extremities: No digital cyanosis No clubbing Pedal pulses intact and symmetrical Radial pulses intact and symmetrical No calf tenderness Psychiatric: Alert and oriented to person, place and time Neuro Muscles Strength 5/5 in all 4 extremities Sensation to light touch grossly present throughout Cranial nerves II-XII grossly intact Past Medical History Past Medical History: Hyperlipidemia, Hypertension, Myocardial Infarction ([place]) Additional Past Medical History / Comment(s): alcoholism, Hx [place] Aug 2023= 2 cardiac stents Last Myocardial Infarction Date:: August 2023 History of Any Multi-Drug Resistant Organisms: None Reported Past Surgical History: Heart Catheterization With Stent Past Anesthesia/Blood Transfusion Reactions: No Reported Reaction Date of Last Stent Placement:: August 2023 Smoking Status: Current every day smoker - Past Family History Mother History Unknown: Yes Medications and Allergies Home Medications Medication Instructions Recorded Confirmed Type Aspirin 81 mg PO DAILY 02/16/24 02/16/24 History Atorvastatin [Lipitor] 80 mg PO HS 02/16/24 02/16/24 History Co Q-10 (Unkown Strength) 1 dose PO HS 02/16/24 02/16/24 History Magnesium (Unknown Strength) 1 dose PO HS 02/16/24 02/16/24 History Metoprolol Succinate (ER) [Toprol 50 mg PO DAILY 02/16/24 02/16/24 History Xl] Prasugrel [Effient] 10 mg PO DAILY 02/16/24 02/16/24 History lisinopriL [Zestril] 2.5 mg PO DAILY 02/16/24 02/16/24 History Allergies Allergy/AdvReac Type Severity Reaction Status Date / Time No Known Allergies Allergy Verified 02/16/24 17:17 Physical Exam Vitals: Vital Signs Pulse BP 02/17/24 09:04 112 H 128/87 02/17/24 07:07 75 147/98 Intake and Output 02/17/24 02/17/24 02/18/24 14:59 22:59 06:59 Other: Weight 64.8 kg Cranial Nerve Examination - Cranial Nerves Cranial Nerve II- Optic: Intact Cranial Nerve III- Oculomotor: Intact Cranial Nerve IV- Trochlear: Intact Cranial Nerve V- Trigeminal: Intact Cranial Nerve - Abducens: Intact Cranial Nerve VII- Facial: Intact Cranial Nerve VIII- Auditory: Intact Cranial Nerve IX- Glossopharyngeal: Intact Cranial Nerve X- Vagus: Intact Cranial Nerve XI- Accessory: Intact Cranial Nerve XII- Hypoglossal: Intact Results CBC & Chem 7: 02/16/24 13:19 02/16/24 13:19 Labs: Abnormal Lab Results - Last 24 Hours (Table) 02/16/24 02/16/24 Range/Units 13:19 13:19 HDL Cholesterol 101.00 H (40.00-60.00) mg/dL Urine Ketones Trace H (Negative) Urine Blood Moderate H (Negative) Assessment and Plan Assessment: Depression suicidal ideation Management per psych Coronary artery disease status post stents Continue with aspirin statin and Effient Continue with lisinopril and metoprolol HDL 101 LDL 81 Alcohol abuse Monitor for alcohol withdrawal symptoms Benzos per CIWA scale Seizure precautions Tobacco smoking abuse Counseled to quit smoking Nicotine replacement therapy offered Blood work showed white count 13.4 afebrile Hemoglobin 17 Sodium 136 potassium 4.1 BUN 8 creatinine 0.5 thank you for this consultation patient stable from medical standpoint at this time
[2024-02-18] MEDS: NALTREXONE HCL 50 MG TAB PO SCH (09:27)
[2024-02-18 12:19] LABS: ALT 59 U/L (4-49); AST 48 U/L (17-59); African American GFR (CKD) >90 (>60 ml/min/1.73 sqM); Albumin 4.2 g/dL (3.5-5.0); Alkaline Phosphatase 104 U/L (38-126); Anion Gap 6 mmol/L; Blood Urea Nitrogen 10 mg/dL (9-20); Calcium 10.2 mg/dL (8.4-10.2); Carbon Dioxide 25 mmol/L (22-30); Chloride 108 mmol/L (98-107); Glucose 105 mg/dL (74-99); Non-African American GFR(CKD) >90 (>60 ml/min/1.73 sqM); Potassium 4.8 mmol/L (3.5-5.1); Sodium 139 mmol/L (137-145); Total Bilirubin 0.6 mg/dL (0.2-1.3); Total Protein 6.6 g/dL (6.3-8.2)
[2024-02-18 12:48] LABS: Basophils # (A) 0.1 k/uL (0-0.2); Basophils % (A) 1 %; Eosinophils # (A) 0.3 k/uL (0-0.7); Eosinophils % (A) 3 %; HCT 54.6 % (39.0-53.0); HGB 16.8 gm/dL (13.0-17.5); Lymphocytes # (A) 1.8 k/uL (1.0-4.8); Lymphocytes % (A) 17 %; MCH 29.1 pg (25.0-35.0); MCHC 30.7 g/dL (31.0-37.0); MCV 94.8 fL (80.0-100.0); Mean Platelet Volume 8.2; Monocytes # (A) 0.6 k/uL (0-1.0); Monocytes % (A) 6 %; Neutrophils # (A) 7.8 k/uL (1.3-7.7); Neutrophils % (A) 72 %; Platelet Count 208 k/uL (150-450); RBC 5.76 m/uL (4.30-5.90); RDW 13.4 % (11.5-15.5); WBC 10.9 k/uL (3.8-10.6)
--- NOTE | 2024-02-18 13:45 | P.PN ---
Progress Note - Text Progress Note Date: 02/18/24 Follow-up Mediation Review Chief Complaint: I am lost Subjective: The patient noted that he has been feeling very depressed. He feels worthless, hopeless, feels lost, fearful, anxious, and depressed. The patient noted that he relapsed in to drinking 2 weeks ago. He harbors guilt and feels that life is sleeping out of hands. He reported feeling dizzy and light headed. Overall, the patient does not feel any different than when he came to the hospital. The patient has been attending the groups. The participation is limited.. The interaction with staff and peers is fair. The patient is compliant with treatment recommendations. Leading questions: The patient admitted to Depression and Anxiety. Denied SI or HI. Denied symptoms consistent with psychosis Sleep and Appetite: Poor. Change in family/ living/job/financial/daily routine: The patient noted that his marriage is almost over. He also fears losing his job. Change in medical condition: No change. Change in medications: No change. Side effects from Medications: None. Allergies: No change. Objective- MSE: Alert and attentive. Orientation times three. Dressed and Groomed: Appropriately. Pleasant and cooperative. Psychomotor Activity: Normal. Speech: Normal in tone, quality, and quantity. Mood: Depressed and anxious. Affect: SI or HI: None. Perceptual disturbance: None. Thought Content: No paranoia or other delusional thinking noted. Thought Process: Normal. Cognition: Intact Judgment and Insight: Poor. AIMS: Normal. Labs: Available labs reviewed. Diagnosis: Major Depressive disorder, recurrent, severe. Plan and Recommendations: Continue current Medications. Monitor MS and side effects of medications and adjust medications accordingly. Provide supportive psychotherapy. The patient provided psychoeducation and advised The patient provided Substance abuse counseling. Smoke cessation therapy. The patient to attend [facility] activities. CBC with Diff, CMP, TSH, Lipid Profile, HbA1c, EKG ordered. Medication Consent with explanation of risk/benefits and side effects: Explained and obtained.
[2024-02-18 14:06] VITALS: BMI 21.7
[2024-02-18 19:44] LABS: Chol/HDL Ratio 2.35 Ratio
[2024-02-18 19:51] LABS: VLDL Calculation 19.98 mg/dL (5.00-40.00)
--- NOTE | 2024-02-19 16:19 | P.PN ---
Progress Note - Text Progress Note Date: 02/19/24 Follow-up Mediation Review Chief Complaint: my depression comes and goes Subjective: The patient noted that feels depressed but it comes and goes. He experiencing butterflies in the stomach, run away, severe anxiety to do something, sadness, guilt, social withdrawal, loss of interest. The patient noted that he is not craving for alcohol but he has craving for. cigarettes. The patient noted that his contacted his work. She was told to get FMLA form filled for short-term disability. The patient talked to the social service coordinator to be placed in a drug rehab program. The patient noted that for last two days he has been having dizzy spells after taking Cymbalta. He would like to switch his antidepressant. Discussed about Prozac. The patient agreed and consented. The patient has been attending the groups. The participation is good. The interaction with staff and peers is good. The patient is compliant with treatment recommendations. Leading questions: The patient admitted to Depression and Anxiety. Denied SI or HI. Denied symptoms consistent with psychosis Sleep and Appetite: Poor. Change in family/ living/job/financial/daily routine: None Change in medical condition: No change. Change in medications: No change. Side effects from Medications: None. Allergies: No change. Objective- MSE: Alert and attentive. Orientation times three. Dressed and Groomed: Appropriately. Pleasant and cooperative. Psychomotor Activity: Normal. Speech: Normal in tone, quality, and quantity. Mood: Depressed and anxious. Affect: SI or HI: None. Perceptual disturbance: None. Thought Content: No paranoia or other delusional thinking noted. Thought Process: Normal. Cognition: Intact Judgment and Insight: Poor. AIMS: Normal. Labs: Available labs reviewed. Diagnosis: Major Depressive disorder, recurrent, severe. Plan and Recommendations: Continue current Medications. Monitor MS and side effects of medications and adjust medications accordingly. Provide supportive psychotherapy. The patient provided psychoeducation and advised The patient provided Substance abuse counseling. Smoke cessation therapy. The patient to attend [facility] activities. CBC with Diff, CMP, TSH, Lipid Profile, HbA1c, EKG ordered. Medication Consent with explanation of risk/benefits and side effects: Explained and obtained.
[2024-02-20] MEDS ORDERED: FLUoxetine HCL 20 MG CAP PO SCH (09:00)
[2024-02-20] MEDS: FLUoxetine HCL 10 MG CAP PO SCH (09:22)
--- NOTE | 2024-02-20 20:59 | P.PN ---
Progress Note - Text Progress Note Date: 02/20/24 Follow-up Mediation Review Chief Complaint: I am feeling better Subjective: The patient noted that feels better today. The patient reported no side effects from medications. He does have slight twitching on his right cheek. It gets more pronounced when anxious. The patient was told that the hospital does fill the FMLA form but he will be given a letter stating that he was in the hospital for depression with a week of rest. The patient relaxed and his twitching stopped. l form depressed but it comes and goes. He experiences butterflies in the stomach, feelings of flight and fight, some occasional sadness, guilt, worthlessness. The patient noted that he is not craving for al cohol but he has craving for cigarettes. He said that his marriage is over but they stay in the same house. He stated that she is supportive of him. The patient noted noted no side effects today. The patient has been attending the groups. The participation is good. The interaction with staff and peers is good. The patient is compliant with treatment recommendations. Leading questions: The patient admitted to Depression and Anxiety. Denied SI or HI. Denied symptoms consistent with psychosis Sleep and Appetite: Fair Change in family/ living/job/financial/daily routine: None Change in medical condition: No change. Change in medications: No change. Side effects from Medications: None. Allergies: No change. Objective- MSE: Alert and attentive. Orientation times three. Dressed and Groomed: Appropriately. Pleasant and cooperative. Psychomotor Activity: Normal. Speech: Normal in tone, quality, and quantity. Mood: Mildly Depressed and anxious. Affect: Consistent with mood. SI or HI: None. Perceptual disturbance: None. Thought Content: No paranoia or other delusional thinking noted. Thought Process: Normal. Cognition: Intact Judgment and Insight: Poor. AIMS: Normal. Labs: Available labs reviewed. Diagnosis: Major Depressive disorder, recurrent, severe. Plan and Recommendations: Continue current Medications. Monitor MS and side effects of medications and adjust medications accordingly. Provide supportive psychotherapy. The patient provided psychoeducation and advised The patient provided Substance abuse counseling. Smoke cessation therapy. The patient to attend [facility] activities. CBC with Diff, CMP, TSH, Lipid Profile, HbA1c, EKG ordered. Medication Consent with explanation of risk/benefits and side effects: Explained and obtained.
--- NOTE | 2024-02-21 15:30 | P.PN ---
Progress Note - Text Progress Note Date: 02/21/24 Follow-up Mediation Review Chief Complaint: I am eager to get in to rehab Subjective: The patient noted that feels better today. The patient reported no side effects from medications. He complained of hand shaking this afternoon. He noted that happened for less than a minute and stopped. He has never had this before. Provided reassurance and support. The patient reported no side effects. Overall, the patient is nicely stabilizing. The patient has been attending the groups. The participation is good. The interaction with staff and peers is good. The patient is compliant with treatment recommendations. Leading questions: The patient admitted to Depression and Anxiety. Denied SI or HI. Denied symptoms consistent with psychosis Sleep and Appetite: Fair Change in family/ living/job/financial/daily routine: None Change in medical condition: No change. Change in medications: No change. Side effects from Medications: None. Allergies: No change. Objective- MSE: Alert and attentive. Orientation times three. Dressed and Groomed: Appropriately. Pleasant and cooperative. Psychomotor Activity: Normal. Speech: Normal in tone, quality, and quantity. Mood: Mildly Depressed and anxious. Affect: Consistent with mood. SI or HI: None. Perceptual disturbance: None. Thought Content: No paranoia or other delusional thinking noted. Thought Process: Normal. Cognition: Intact Judgment and Insight: Poor. AIMS: Normal. Labs: Available labs reviewed. Diagnosis: Major Depressive disorder, recurrent, severe. Plan and Recommendations: Continue current Medications. Monitor MS and side effects of medications and adjust medications accordingly. Provide supportive psychotherapy. The patient provided psychoeducation and advised The patient provided Substance abuse counseling. Smoke cessation therapy. The patient to attend [facility] activities. Medication Consent with explanation of risk/benefits and side effects: Explained and obtained.
[2024-02-22 06:13] VITALS: RESP 16; TEMP 96.7
[2024-02-22 08:50] VITALS: BP 112/76; PULSE 79
--- NOTE | 2024-02-22 16:29 | P.DS ---
Providers Date of admission: 02/16/24 17:23 Expected date of discharge: 02/22/24 Attending physician: Jose Franklin MD Consults: 02/16/24 17:36 Consult Physician Routine Consulting Provider: Joselin Jarquin Consult Reason/Comments: H&P and medical Do you want consulting provider notified?: Yes Primary care physician: Stated None - Discharge Diagnosis(es) (1) Major depressive disorder Status: Acute Priority: High (2) Alcohol dependence Status: Acute Priority: Medium Hospital Course: Discharge Summary HPI: IDENTIFYING DATA: Patient is a , employed, 58-year-old male who is presenting with suicidal ideation HPI: Patient brought himself into the emergency department along with the help of his due to suicidal ideation and inability to care for himself. Recent stressors include increased alcohol intake and him and his considering divorce. Patient has been drinking from 0.5 pint up to 1 pint for the past 1 week. Longest period of sobriety was 6 weeks in 2023. In conjunction with increasing alcohol intake, patient has noticed depression worsening over the past 1 year with significant worsening this year since his myocardial infarction in August 2023. He admits to drinking more heavily since then also. He reports getting 8 hours of sleep generally without major problems. He endorses poor appetite, poor self care, and low energy. When asked about concentration, he describes inner restlessness. He reports decreased pleasure with work, which he used to enjoy a lot more in the past. Patient reports having significant anxiety on a daily basis. He endorses wo rrying about numerous things in his life. He endorses restlessness, having difficulty relaxing, feeling on edge, and trouble completing tasks due to anxiety. The patient does report a significant history of substance abuse. He reports that he began drinking at the age of 17 and drank heavily up until his mid 20s. He reports that his alcohol has caused him significant dysfunction including 2 previous DUIs as well as an other than honorable discharge from the [facility] back in 1987. He reports that he went into rehab for alcohol use disorder in 1990. In regards to other substances, the patient reports smoking 1ppd. He denies any marijuana or illicit drug use. He cannot recall his current psychotropic medications. However, he reports compliance with the medications and states that he places them in a pillbox and does not recall names. He denies symptoms consistent with jose and psychosis. He denies auditory and visual hallucinations, paranoia, homicidal ideation, as asked and assessed. PSYCH HX: Patient was hospitalized in 2021 here for major depression and was discharged on Zoloft and Seroquel at the time. Denies hx of suicide attempts He was receiving psychiatric care from [facility] and a therapist at [facility]. He was on Zoloft and Buspar. He states that he has not noticed a difference with his psychiatric medications improving his mental health. PMH: Past Medical History: Hyperlipidemia, Hypertension, Myocardial Infarction (Aug 2023) Additional Past Medical History / Comment(s): alcoholism, History of Any Multi-Drug Resistant Organisms: None Reported Past Surgical History: Heart Catheterization With Stent Past Psychological History: Anxiety, Depression Smoking Status: Current every day smoker Past Alcohol Use History: Abuse, Daily, Heavy Past Drug Use History: None Reported ALLERGIES: NKDA PCP: Denies. 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 The patient was started on Prozac 10 mg. The dose was titrated to obtain the desire effects. The patient tolerated medications well without any side effects. The patient was also involved in mcnelil activities. The patient attended the groups and participated well. The patient interacted with peers and staff well. The patient slowly started showing impr ovement. The hospital course was uneventful. The patient symptoms of depression, suicidal and homicidal ideations abated. The psychosis improved. The patient was stable to be discharged to out-patient care. The patient did not have any guns or weapons in possession at home. MSE: General Appearance: Patient appears to be stated age is alert, directable, and attempts to cooperate. Pedro Luis complexion. Patient appears to have slightly disheveled hygiene and grooming. Behavior: Patient is seated without any agitated behavior. Slightly internally agitated and restlessness Speech: Patient's speech is fluent and nonpressured. Mood/Affect: Patient reports their mood is "sh" affect is depressed and tearful Suicidality/Homicidality: Patient is denying any homicidal ideation. Admits to passive suicidal ideation Perceptions: Patient denies any visual hallucinations and denies any auditory hallucinations Though content/process: There is no evidence of any delusional thought content and thought process is linear and goal-directed. Memory and concentration: AOX3, grossly intact for the purposes of this session. Can spell "WORLD" backwards Judgment and insight: Fair STRENGTHS/WEAKNESSES: Strength is his social support and seeking mental health help. Weaknesses comorbid alcohol use INTELLECT: average Diagnosis: Major depressive disorder Generalized anxiety disorder Alcohol use disorder, severe, in withdrawal Tobacco use disorder Plan: The patient to be discharged today. The patient has attained good improvement since admission. He is stable to be followed as an outpatient. The patient is not suicidal or Homicidal. He does not pose any harm to self or others. The patient remains at a greater risk of self-harm or harm to others than general population on a chronic basis due to psychiatric illness and substance abuse. The patient will continue taking following medication post discharge. The importance of medication compliance and maintaining regular appointments at psychiatric out-pt and PCP clinic was explained and encouraged. The patient is going to [facility] for rehab after discharge. The patient was also advised to seek alcohol counseling and attend AA/NA meetings. The understood and agreed with the recommendations. tray worker to arrange for and conduct family meeting to ensure safety upon discharge and answer any questions. The adoption social worker to arrange for patients follow-up appointments at [facility] for psychiatric care along with follow-up with PCP. The patient provided psychoeducation. Advised to call 911 or go to nearest ED or call this hospital in case of acute worsening of symptomatology, severe side effects or having suicidal, homicidal thoughts and feeling unsafe at home. Patient Condition at Discharge: Stable Plan - Discharge Summary Discharge Rx Participant: No New Discharge Prescriptions: New FLUoxetine HCL [PROzac] 10 mg PO DAILY 15 Days #15 cap Continue Prasugrel [Effient] 10 mg PO DAILY Metoprolol Succinate (ER) [Toprol XL] 50 mg PO DAILY Magnesium (Unknown Strength) 1 dose PO HS Aspirin 81 mg PO DAILY Atorvastatin [Lipitor] 80 mg PO HS Co Q-10 (Unkown Strength) 1 dose PO HS lisinopriL [Zestril] 2.5 mg PO DAILY Discharge Medication List Aspirin 81 mg PO DAILY 02/16/24 [History] Atorvastatin [Lipitor] 80 mg PO HS 02/16/24 [History] Co Q-10 (Unkown Strength) 1 dose PO HS 02/16/24 [History] Magnesium (Unknown Strength) 1 dose PO HS 02/16/24 [History] Metoprolol Succinate (ER) [Toprol XL] 50 mg PO DAILY 02/16/24 [History] Prasugrel [Effient] 10 mg PO DAILY 02/16/24 [History] lisinopriL [Zestril] 2.5 mg PO DAILY 02/16/24 [History] FLUoxetine HCL [PROzac] 10 mg PO DAILY 15 Days #15 cap 02/22/24 [Rx] Follow up Appointment(s)/Referral(s): [employer] [facility] [Outside] - 02/26/24 5:00 pm (Miriam Falk) [facility] [NON-STAFF] - 1 Week Patient Instructions/Handouts: Depression (DC), Alcohol Intoxication (DC) Activity/Diet/Wound Care/Special Instructions: Avoid the use of street drugs and alcohol. Take all medications as prescribed. When you are in need of refills on your medications, please contact your medical provider and/or outpatient psychiatrist/provider to have this done. Please go to your scheduled outpatient appointment for aftercare treatment. If symptoms return or become worse, call the crisis line at and/or go to the nearest emergency room for evaluation. National Suicide Hotline 988 Discharge/Stand Alone Forms: AA Meetings [facility] Discharge Disposition: HOME SELF-CARE
== END 2024-02-22 15:21 | disposition home or self-care (01) | DRG 885 ==
LOC: EC 12:03 → 3MHU 17:23
PROVIDERS: ADMIT Psychiatry & Neurology Psychiatry; ATTEND Psychiatry & Neurology Psychiatry
DX: F33.2 Major depressive disorder, recurrent severe without psychotic features (principal); R45.851 Suicidal ideations; F10.239 Alcohol dependence with withdrawal, unspecified; I10 Essential (primary) hypertension; F41.1 Generalized anxiety disorder; E78.5 Hyperlipidemia, unspecified; I25.2 Old myocardial infarction; Z11.52 Encounter for screening for COVID-19; Z28.310 Unvaccinated for COVID-19; I25.10 Atherosclerotic heart disease of native coronary artery without angina pectoris; F17.210 Nicotine dependence, cigarettes, uncomplicated; Z71.6 Tobacco abuse counseling; Z79.82 Long term (current) use of aspirin; Z79.02 Long term (current) use of antithrombotics/antiplatelets; Z79.899 Other long term (current) drug therapy; Z95.5 Presence of coronary angioplasty implant and graft; Z71.41 Alcohol abuse counseling and surveillance of alcoholic
CPT/HCPCS: 36415; 80053; 80061; 80306; 81001; 82075; 83036; 83735; 84443; 85025; 87635; 93005; 96360; 99285

== ENCOUNTER 2024-04-07 00:35 | Inpatient (IN) | payer MEDICAID ==
[~2024-04-07 00:35] MED LIST: LORazepam 2 MG/ML INJ ONE
[2024-04-07] MEDS ORDERED: ASPIRIN 81 MG ONE (07:48)
[2024-04-07] MEDS ORDERED: lisinopriL 10 MG TAB ONE (07:48)
[2024-04-07] MEDS ORDERED: FLUoxetine HCL 10 MG CAP ONE (07:48)
[2024-04-08] MEDS ORDERED: ASPIRIN 81 MG ONE (07:34)
[2024-04-08] MEDS ORDERED: lisinopriL 10 MG TAB ONE (07:34)
[2024-04-08] MEDS ORDERED: FLUoxetine HCL 10 MG CAP ONE (07:34)
[2024-04-08] MEDS ORDERED: busPIRone HCl 5 MG TAB ONE ×2 (15:55→20:07)
[2024-04-09] MEDS ORDERED: busPIRone HCl 5 MG TAB ONE (07:49)
[2024-04-09] MEDS ORDERED: lisinopriL 10 MG TAB ONE (07:49)
[2024-04-09] MEDS ORDERED: ASPIRIN 81 MG ONE (07:49)
[2024-04-09] MEDS ORDERED: FLUoxetine HCL 10 MG CAP ONE (07:49)
[2024-04-09] MEDS ORDERED: busPIRone HCl 10 MG TAB ONE (19:42)
[2024-04-09] MEDS ORDERED: ATORVASTATIN 40 MG TAB ONE (19:43)
[2024-04-10] MEDS ORDERED: ASPIRIN 81 MG ONE (07:43)
[2024-04-10] MEDS ORDERED: busPIRone HCl 10 MG TAB ONE ×4 (07:44→20:34)
[2024-04-10] MEDS ORDERED: FLUoxetine HCL 20 MG CAP ONE (07:44)
[2024-04-10] MEDS ORDERED: ATORVASTATIN 40 MG TAB ONE (19:45)
[2024-04-11] MEDS ORDERED: busPIRone HCl 10 MG TAB ONE (07:58)
[2024-04-11] MEDS ORDERED: ASPIRIN 81 MG ONE (07:58)
[2024-04-11] MEDS ORDERED: FLUoxetine HCL 20 MG CAP ONE (07:58)
--- NOTE | 2024-05-23 14:43 | CONS ---
CONSULTATION The patient was seen and examined in room 304, bed 2. HISTORY OF PRESENT ILLNESS: This is a 58-year-old gentleman with medical history of CAD/hypertension/hyperlipidemia, alcohol abuse, nicotine dependence who presented for evaluation of mental health needs. Medicine was consulted for mental management as well as evaluation. The patient has no complaints at this time. He does note that he had a heart attack back in August of this year, for which he is on optimum medical therapy including the antiplatelet therapy with aspirin, Prasugrel, atorvastatin, and lisinopril. The patient denies any history of kidney disease, strokes, liver disease, or any other complaints at this time. He does follow up regularly with his executive pilot. On evaluation, the patient was afebrile, 112/66, heart rate 84, 98% on room air. CBC is noted to be the following. Hemoglobin is 17.2, white blood cell count is 10.6, platelets are 235. The patient's metabolic panel is reviewed and unremarkable. Liver function tests are reviewed and showed an AST of 47, ALT of 42, alkaline phosphatase of 107. Alcohol level is less than 10. Lipase is 136, amylase is 106. Urinalysis showed trace blood, 2 red blood cells per high-power field as well as 2 white blood cells per high-power field. REVIEW OF SYSTEMS: All systems were reviewed and pertinent positives and negatives are noted in HPI, otherwise negative. PHYSICAL EXAMINATION: GENERAL: The patient is alert and oriented, no apparent distress, nontoxic appearing. RESPIRATORY: The patient has symmetric chest expansion and is not using accessory muscles. CARDIOVASCULAR: Perfusing all extremities well. NEUROLOGIC: Moving all extremities, nonfocal. PSYCHIATRIC: Mood is euthymic, affect is euthymic. The patient is cooperative and pleasant. Judgement and insight appeared to be intact. LABS AND IMAGING: Reviewed as above. ASSESSMENT/PLAN: 1. Coronary artery disease. Recommended continuing aspirin, Prasugrel. 2. Hypertension, hyperlipidemia. Recommended resuming lisinopril, atorvastatin. 3. Alcohol abuse, CIWA protocol with Ativan p.r.n. Recommend thiamine, folic acid, and multivitamin. 4. Nicotine abuse. Recommended nicotine patch 21 mg for 24 hours, substance cessation advised. Thank you for this consultation. A member of our team will always be available if there are any questions or concerns, please do not hesitate to reach out. MMODL / IJN: [id number] /
== END 2024-04-11 13:30 | disposition home or self-care (01) | DRG 775 ==
LOC: EDBD → 3MHU 00:35 → EDUNIT# 04-08 05:16 → UNDOADMIN 04-08 05:16 → DISRECOVER 04-08 05:16 → UNDODISIN 04-11 13:30
PROVIDERS: ADMIT Psychiatry & Neurology Psychiatry; ATTEND Psychiatry & Neurology Psychiatry
DX: F10.14 Alcohol abuse with alcohol-induced mood disorder (principal); F41.9 Anxiety disorder, unspecified; E78.5 Hyperlipidemia, unspecified; I10 Essential (primary) hypertension; I25.10 Atherosclerotic heart disease of native coronary artery without angina pectoris; R41.0 Disorientation, unspecified; I25.2 Old myocardial infarction; Z79.82 Long term (current) use of aspirin; Z79.01 Long term (current) use of anticoagulants; Z79.899 Other long term (current) drug therapy; Z71.41 Alcohol abuse counseling and surveillance of alcoholic; Z71.6 Tobacco abuse counseling
CPT/HCPCS: 96361; 99285

== ENCOUNTER 2024-04-22 18:20 | Emergency (ER) | payer OTHER ==
[2024-04-22 18:47] VITALS: TEMP 98.5
--- NOTE | 2024-04-22 21:16 | ED ---
General Adult HPI - General Source: patient, RN notes reviewed, old records reviewed Mode of arrival: ambulatory Limitations: no limitations <David Persaud - Last Filed: 04/22/24 21:09> <David Renteria - Last Filed: 04/23/24 01:38> - General Chief complaint: Psychiatric Symptoms Stated complaint: mental health Time Seen by Provider: 04/22/24 20:14 - History of Present Illness Initial comments: 59-year-old male presenting for mental health evaluation. Patient has had recurrent episodes of anxiety, depression and suicidal thoughts. He does admit to alcohol use today and has been self-medicating with alcohol. Patient states that he thinks he will be better off . He is accompanied by his was able to give detailed history. (David Persaud) - Related Data Home Medications Medication Instructions Recorded Confirmed Aspirin 81 mg PO DAILY 02/16/24 02/16/24 Atorvastatin [Lipitor] 80 mg PO HS 02/16/24 02/16/24 Co Q-10 (Unkown Strength) 1 dose PO HS 02/16/24 02/16/24 Magnesium (Unknown Strength) 1 dose PO HS 02/16/24 02/16/24 Metoprolol Succinate (ER) [Toprol 50 mg PO DAILY 02/16/24 02/16/24 XL] Prasugrel [Effient] 10 mg PO DAILY 02/16/24 02/16/24 lisinopriL [Zestril] 2.5 mg PO DAILY 02/16/24 02/16/24 Previous Rx's Medication Instructions Recorded FLUoxetine HCL [PROzac] 10 mg PO DAILY 15 Days #15 cap 02/22/24 Allergies Allergy/AdvReac Type Severity Reaction Status Date / Time No Known Allergies Allergy Verified 04/22/24 18:47 Review of Systems ROS Other: All systems not noted in ROS Statement are negative. <David Persaud - Last Filed: 04/22/24 21:09> ROS Other: All systems not noted in ROS Statement are negative. <David Renteria - Last Filed: 04/23/24 01:38> ROS Statement: Those systems with pertinent positive or pertinent negative responses have been documented in the HPI. Past Medical History Past Medical History: Hyperlipidemia, Hypertension, Myocardial Infarction ([place]) Additional Past Medical History / Comment(s): alcoholism, Hx [place] Aug 2023= 2 cardiac stents Last Myocardial Infarction Date:: August 2023 History of Any Multi-Drug Resistant Organisms: None Reported Past Surgical History: Heart Catheterization With Stent Past Anesthesia/Blood Transfusion Reactions: No Reported Reaction Date of Last Stent Placement:: August 2023 Past Psychological History: Anxiety, Depression Smoking Status: Current every day smoker Past Alcohol Use History: Daily - Past Family History Mother History Unknown: Yes <David Persaud - Last Filed: 04/22/24 21:09> General Exam Limitations: no limitations General appearance: alert, appears intoxicated Head exam: Present: atraumatic, normocephalic Eye exam: Present: normal appearance, PERRL ENT exam: Present: normal exam Neck exam: Present: normal inspection. Absent: tenderness, meningismus Respiratory exam: Present: normal lung sounds bilaterally, respiratory distress Cardiovascular Exam: Present: regular rate, normal rhythm GI/Abdominal exam: Present: soft. Absent: distended, tenderness Neurological exam: Present: alert, oriented X3, CN II-XII intact. Absent: motor sensory deficit Psychiatric exam: Present: depressed, anxious, suicidal ideation Skin exam: Present: warm, dry, intact. Absent: cyanosis, diaphoretic <David Persaud - Last Filed: 04/22/24 21:09> Course Vital Signs 04/22/24 18:43 Temperature 98.5 F Pulse Rate 73 Respiratory 18 Rate Blood Pressure 127/83 O2 Sat by Pulse 96 Oximetry Medical Decision Making <David Persaud - Last Filed: 04/22/24 21:09> <David Renteria - Last Filed: 04/23/24 01:38> - Medical Decision Making Was pt. sent in by a medical professional or institution (, PA, PRINCIPAL ARCHITECT, urgent care, hospital, or senior living...) When possible be specific @ -No Did you speak to anyone other than the patient for history (EMS, parent, family, police, friend...)? What history was obtained from this source @ -Patient's Did you review nursing and triage notes (agree or disagree)? Why? @ -I reviewed and agree with nursing and triage notes Were old charts reviewed (outside hosp., previous admission, EMS record, old EKG, old radiological studies, urgent care reports/EKG's, senior living records)? Report findings @ -No old charts were reviewed Differential Mental Health Depression, anxiety, bipolar, psychosis, schizophrenia, borderline personality, situational depression, adjustment disorder, behavioral disorder, brain tumor, malingering, substance abuse, encephalopathy, medication reaction, dementia, hypothyroidism, degenerative neurologic disorder, lupus.... This is not meant to be all-inclusive list EKG interpreted by me (3pts min.). @ -As above X-rays interpreted by me (1pt min.). @ -None done CT interpreted by me (1pt min.). @ -None done U/S interpreted by me (1pt. min.). @ -None done What testing was considered but not performed or refused? (CT, X-rays, U/S, labs)? Why? @ -None What meds were considered but not given or refused? Why? @ -None Did you discuss the management of the patient with other professionals (pr ofessionals i.e. , PA, PRINCIPAL ARCHITECT, lab, RT, psych nurse, social service manager, regulatory affairs internship, teacher, commissary officer, nurse case manager)? Give summary @ -No Was smoking cessation discussed for >3mins.? @ -No Was critical care preformed (if so, how long)? @ -No Were there social determinants of health that impacted care today? How? (Homelessness, low income, unemployed, alcoholism, drug addiction, transportation, low edu. Level, literacy, decrease access to med. care, senior care, rehab)? @ -No Was there de-escalation of care discussed even if they declined (Discuss DNR or withdrawal of care, Hospice)? DNR status @ -No What co-morbidities impacted this encounter? (DM, HTN, Smoking, COPD, CAD, Cancer, CVA, ARF, Chemo, Hep., AIDS, mental health diagnosis, sleep apnea, morbid obesity)? @Anxiety, depression Was patient admitted / discharged? Hospital course, mention meds given and route, prescriptions, significant lab abnormalities, going to OR and other pertinent info. @ -Patient evaluated awaiting sobriety for EPS evaluation care signed out at shift change. (David Persaud) 59 male who is seen and evaluated by psychiatry here in the emergency department and is okay for discharge home (David Renteria) - Lab Data Lab Results 04/22/24 Range/Units 21:20 Urine Opiates Screen Not Detected (NotDetected) Ur Oxycodone Screen Not Detected (NotDetected) Urine Methadone Screen Not Detected (NotDetected) Ur Barbiturates Screen Not Detected (NotDetected) U Tricyclic Antidepress Not Detected (NotDetected) Ur Phencyclidine Scrn Not Detected (NotDetected) Ur Amphetamines Screen Not Detected (NotDetected) U Methamphetamines Scrn Not Detected (NotDetected) U Benzodiazepines Scrn Not Detected (NotDetected) Urine Cocaine Screen Not Detected (NotDetected) U Marijuana (THC) Screen Not Detected (NotDetected) Disposition <David Persaud - Last Filed: 04/22/24 21:09> Is patient prescribed a controlled substance at d/c from ED?: No <David Renteria - Last Filed: 04/23/24 01:38> Clinical Impression: Major depressive disorder with single episode, Alcohol use disorder, moderate, in sustained remission Disposition: HOME SELF-CARE Condition: Fair Instructions (If sedation given, give patient instructions): Depression (ED) Referrals: Nonstaff,Physician [Primary Care Provider] - 1-2 days
[2024-04-22 22:18] LABS: Amphetamine Screen,Urine Not Detected (NotDetected); Barbiturate Screen,Urine Not Detected (NotDetected); Benzodiazepines Screen,Urine Not Detected (NotDetected); Cocaine Screen,Urine Not Detected (NotDetected); Methadone Screen, Urine Not Detected (NotDetected); Opiate Screen,Urine Not Detected (NotDetected); Oxycodone Screen, Urine Not Detected (NotDetected); Phencyclidine Screen,Urine Not Detected (NotDetected); Tricyclic Antidepressant,Urine Not Detected (NotDetected); Urn Cannabinoid Scrn Not Detected (NotDetected)
[2024-04-23 01:52] VITALS: BP 159/81; PULSE 103; RESP 16
== END 2024-04-23 01:52 | disposition home or self-care (01) ==
LOC: EC 18:20
DX: F99 Mental disorder, not otherwise specified
CPT/HCPCS: 80306; 82075; 99285

== ENCOUNTER 2024-05-27 17:21 | Inpatient (IN) | payer MEDICAID ==
[2024-05-27] MEDS ORDERED: MAGNESIUM HYDROXIDE 2,400 MG/30 ML CUP PO PRN (17:51)
[2024-05-27] MEDS ORDERED: HALOPERIDOL LACTATE 5 MG/ML 1 ML VIAL IM PRN (17:51)
[2024-05-27] MEDS ORDERED: IBUPROFEN 600 MG TAB PO PRN (17:51)
[2024-05-27] MEDS ORDERED: ACETAMINOPHEN TAB 325 MG TAB PO PRN (17:51)
[2024-05-27] MEDS ORDERED: MAG HYDROX/AL HYDROX/SIMETH 355 ML BOTTLE PO PRN (17:51)
[2024-05-27] MEDS ORDERED: haloperidoL 5 MG TAB PO PRN (17:51)
[2024-05-27] MEDS ORDERED: LORazepam 1 MG TAB PO PRN (17:51)
[2024-05-27] MEDS ORDERED: hydrOXYzine HCL 25 MG TAB PO PRN (17:51)
[2024-05-27] MEDS ORDERED: hydrOXYzine HCL 50 MG/ML 1 ML VIAL IM PRN (17:51)
--- NOTE | 2024-05-28 | P.MDCNMH ---
History of Present Illness H&P Date: 05/27/24 Chief Complaint: Medical evaluation 59-year-old male with coronary artery disease depression Patient coming in for evaluation of depression and anxiety and suicidal ideation. Patient denies any medical concerns at this time denies any chest pain trouble breathing fevers chills nausea vomiting abdominal pain changes in bowel or urinary habits. Patient had a heart attack earlier this year he claims taking his medications regularly milligram Patient admits to tobacco smoking and heavy alcohol denies any drug review of systems Pertinent positives as noted in HPI. All other systems were reviewed and are negative on exam Constitutional: No acute distress, depressed mood Eyes: Anicteric sclerae, moist conjunctiva, Pupils equal round reactive to light ENMT: NC/AT Oropharynx clear, no erythema, or exudates Neck: Supple, no masses, or JVD No carotid bruits No thyromegaly Lungs: Clear to auscultation Clear to percussion Normal respiratory effort, no accessory muscle use Cardiovascular: Heart regular in rate and rhythm, No murmurs, gallops, or rubs No peripheral edema Abdominal: Soft Nontender, no guarding, rebound or rigidity Abdomen moving with respiration Normoactive bowel sounds Extremities: No digital cyanosis No clubbing Pedal pulses intact and symmetrical Radial pulses intact and symmetrical No calf tenderness Psychiatric: Alert and oriented to person, place and time Neuro Muscles Strength 5/5 in all 4 extremities Sensation to light touch grossly present throughout Cranial nerves II-XII grossly intact Past Medical History Past Medical History: Hyperlipidemia, Hypertension, Myocardial Infarction ([place]) Additional Past Medical History / Comment(s): alcoholism, Hx [place] Aug 2023= 2 cardiac stents Last Myocardial Infarction Date:: August 2023 History of Any Multi-Drug Resistant Organisms: None Reported Past Surgical History: Heart Catheterization With Stent Past Anesthesia/Blood Transfusion Reactions: No Reported Reaction Date of Last Stent Placement:: August 2023 Past Psychological History: Anxiety, Depression Smoking Status: Current every day smoker Past Alcohol Use History: Daily Past Drug Use History: None Reported - Past Family History Mother History Unknown: Yes Medications and Allergies Home Medications Medication Instructions Recorded Confirmed Type Aspirin 81 mg PO DAILY 02/16/24 02/16/24 History Atorvastatin [Lipitor] 80 mg PO HS 02/16/24 02/16/24 History Co Q-10 (Unkown Strength) 1 dose PO HS 02/16/24 02/16/24 History Magnesium (Unknown Strength) 1 dose PO HS 02/16/24 02/16/24 History Metoprolol Succinate (ER) [Toprol 50 mg PO DAILY 02/16/24 02/16/24 History XL] Prasugrel [Effient] 10 mg PO DAILY 02/16/24 02/16/24 History lisinopriL [Zestril] 2.5 mg PO DAILY 02/16/24 02/16/24 History FLUoxetine HCL [PROzac] 10 mg PO DAILY 15 Days #15 cap 02/22/24 Rx Allergies Allergy/AdvReac Type Severity Reaction Status Date / Time No Known Allergies Allergy Verified 04/22/24 18:47 Physical Exam Vitals: Vital Signs Temp BP Pulse Ox 05/27/24 18:58 98.1 F 176/98 98 Intake and Output 05/27/24 05/27/24 05/28/24 14:59 22:59 06:59 Other: Weight 64.2 kg Cranial Nerve Examination - Cranial Nerves Cranial Nerve II- Optic: Intact Cranial Nerve III- Oculomotor: Intact Cranial Nerve IV- Trochlear: Intact Cranial Nerve V- Trigeminal: Intact Cranial Nerve - Abducens: Intact Cranial Nerve VII- Facial: Intact Cranial Nerve VIII- Auditory: Intact Cranial Nerve IX- Glossopharyngeal: Intact Cranial Nerve X- Vagus: Intact Cranial Nerve XI- Accessory: Intact Cranial Nerve XII- Hypoglossal: Intact Assessment and Plan Assessment: Coronary artery disease status post stents Continue with aspirin and Effient and statin Hypertension uncontrolled Continue metoprolol and lisinopril Continue to monitor closely, will adjust medications if blood pressure continues to be uncontrolled despite taking twice daily meds Depression and suicidal ideation Management per psych Alcohol dependence and abuse Monitor for alcohol withdrawal symptoms Benzo per CIWA scale Thiamine p.o. 100 mg daily No labs available for review, follow-up labs Overall stable from medical standpoint Thank you for this consultation
[2024-05-28] MEDS: ASPIRIN 81 MG PO SCH (08:30)
[2024-05-28] MEDS: METOPROLOL SUCCINATE (ER) 50 MG TAB.ER.24H PO SCH (08:30)
[2024-05-28] MEDS: NICOTINE 14MG/24HR PATCH TRANSDERM SCH (08:30)
[2024-05-28] MEDS: THIAMINE 100 MG TAB PO SCH (08:31)
[2024-05-28] MEDS: PRASUGREL 10 MG TAB PO SCH (08:31)
[2024-05-28 11:12] LABS: Chol/HDL Ratio 3.56 Ratio; VLDL Calculation 15.56 mg/dL (5.00-40.00)
[2024-05-28] MEDS: PARoxetine 10 MG TAB PO SCH (11:39)
[2024-05-28] MEDS: LORazepam 1 MG TAB PO PRN (11:41)
--- NOTE | 2024-05-28 12:14 | P.HP ---
Psychiatric H&P - . H&P Date: 05/28/24 History & Physical: Allergies Allergy/AdvReac Type Severity Reaction Status Date / Time No Known Allergies Allergy Verified 04/22/24 18:47 Vital Signs Temp 98.4 F 05/28/24 07:04 Pulse 71 05/28/24 07:04 Resp 16 05/28/24 07:04 BP 119/72 05/28/24 07:04 Pulse Ox 97 05/28/24 07:04 FiO2 Intake & Output 05/27/24 05/28/24 05/28/24 18:59 06:59 18:59 Weight 64.2 kg Laboratory Last Values Estimated Ave Glu mg/dL 123 mg/dL 05/28/24 06:57 Hemoglobin A1c 5.9 % (<=6.0) 05/28/24 06:57 Triglycerides 77.80 mg/dL (0.00-149.00) 05/28/24 06:57 Cholesterol 254.00 mg/dL (0.00-200.00) H 05/28/24 06:57 LDL Cholesterol, Calc 167.0 mg/dL (0.0-131.0) H 05/28/24 06:57 VLDL Cholesterol, Calc 15.56 mg/dL (5.00-40.00) 05/28/24 06:57 HDL Cholesterol 71.40 mg/dL (40.00-60.00) H 05/28/24 06:57 Cholesterol/HDL Ratio 3.56 Ratio 05/28/24 06:57 TSH 2.960 mIU/L (0.465-4.680) 05/28/24 06:57 05/28/24 11:45 IDENTIFYING DATA: Patient is a 59-year-old, male currently living in [facility] HPI: Patient presented to [facility] with a chief complaint of suicidal ideations. Per petition: "Juan F presents with flat affect and depressed mood. Hopeless and helpless. States cannot deal with life anymore. States suicidal. Not sleeping or eating." Per clinical certificate: "Patient states he wants to . And just wants it all to end. He is not sleeping and stopped taking meds. " Patient was seen wandering the halls but readily agreed to interview in office. He expresses a 2-1/2-year period of depression that prompted him to self medicate with alcohol. He expresses difficulty with doing most things including tending to his ADLs and easily being overwhelmed. He expresses frustration with his inability to feel better as he feels like he is a strong individual. He reports poor sleep and appetite, hopelessness and helplessness, low energy, and suicidal thoughts but denies any plan or intent. He feels like these thoughts are worsening but he does admit to drinking 1 pint a day that causes him to sometimes forget to take his psychotropic medications. He states not taking his medications for the past 3 days. He reports 1 prior rehab stay roughly 32 years ago at [facility] and he was previously doing really well with sobriety until his depression started. He reports being open to medications to help with cravings and he denied any withdrawal symptoms today. He appears to not be interested in rehab at this time. He reports anxiety described as worrying ab out many different things outside of his control in addition to restlessness and feeling on edge. Patient denies any current active suicidal or homicidal ideations intent or plan. At this time patient denies any auditory or visual hallucinations. Patient denies any flight of ideas racing thoughts and increased in goal directed behavior. He reports smoking roughly 20 to 30 cigarettes/day. PAST PSYCHIATRIC HISTORY: Patient has a history of alcohol use disorder, depression, anxiety. He is currently prescribed Paxil 30 mg daily, Klonopin 0.5 mg daily as needed. He follows with [facility] and has a therapist there as well. Patient reports at least 4 previous hospitalizations with the first being in 2021, most recent April 2024 at [facility]. Patient denies any history of suicide attempts in the past. PMH: as per ER note ALLERGIES: as per EMR CHEMICAL DEPENDENCY HISTORY: as per HPI FAMILY PSYCHIATRIC/SUBSTANCE USE HISTORY: Denies SOCIAL HISTORY: Patient currently lives in [facility] with his and has 3 children. He received his associates degree and was previously working at [employer] until being laid off roughly 3 months ago. He is currently on unemployment. MENTAL STATUS EXAM: General Appearance: Patient appears to be stated age is alert, directable, and attempts to cooperate. Patient appears to have poor hygiene and grooming. Behavior: Patient is seated without any agitated behavior. Speech: Patient's speech is fluent and nonpressured. Mood/Affect: Patient reports their mood is depressed, affect is congruent and blunted. Suicidality/Homicidality: Patient denies having any homicidal ideation intent or plan. Denies any current active suicidal ideations with intent or plan Perceptions: Patient denies any visual hallucinations and denies any auditory hallucinations Though content/process: There is no evidence of any delusional thought content and thought process is linear and goal-directed. Memory and concentration: AOX3, grossly intact for the purposes of this session. Can spell "WORLD" backwards Judgment and insight: Poor STRENGTHS/WEAKNESSES: strength is that patient is a support system. Weakness is that patient has poor judgment, abuses alcohol and is impulsive INTELLECT: Average IMPRESSIONS: Major depressive disorder, recurrent Rule out substance-induced mood disorder Alcohol use disorder, severe Tobacco use disorder Generalized anxiety disorder PLAN: -Patient is admitted under voluntary status to [facility] for stabilization of psychiatric symptoms and safety. Patient has not signed [adult voluntary form but signed the medication consent and is placed in patient's chart. A second certification was completed and along with petition will be filed for court. -Medications : Start Paxil 10 mg daily for depression and anxiety, naltrexone 25 mg at bedtime for alcohol cravings, trazodone 25 mg at bedtime for sleep -Ativan and Haldol PRN for agitation/aggression -Started thiamine, MVM for etoh use -[facility] protocol with Ativan PRN for ETOH withdrawal. -Started thiamine, MVM for etoh use -Patient was counselled on substance abuse and desired to cut back on use-Will offer patient subtance use rehab -Patient was informed of the risks, benefits and side effects of the medication and patient verbally consented to taking the medications. Patient signed med consent form and was placed in chart. -Internal Medicine consult to perform medical evaluation and physical. -NRT -nicotine patch - on board for discharge planning. Encourage patient to participate in groups to work on coping skills. Will await deferral and court date. 05/28/24 11:56 05/28/24 12:11 05/28/24 12:12
[2024-05-28 13:07] LABS: Appearance,Urine Clear (Clear); Bilirubin,Urine Negative (Negative); Blood,Urine Small (Negative); Color,Urine Colorless; Glucose,Urine (UA) Negative (Negative); Ketones,Urine 1+ (Negative); Leukocyte Esterase,Urine Negative (Negative); Mucus,Urine Rare /hpf; Nitrite,Urine Negative (Negative); PH, Urine 7.5 (5.0-8.0); Protein,Urine Negative (Negative); RBC,Urine 4 /hpf (0-5); Urobilinogen,Urine <2.0 mg/dL (<2.0); WBC,Urine <1 /hpf (0-5)
[2024-05-28] MEDS: NALTREXONE HCL 50 MG TAB PO SCH (21:35)
[2024-05-28] MEDS: ATORVASTATIN 80 MG TAB PO SCH (21:36)
[2024-05-28] MEDS: traZODone HCL 50 MG TAB PO SCH (21:36)
--- NOTE | 2024-05-29 10:05 | P.PN ---
Progress Note - Text Progress Note Date: 05/29/24 Interval History: Patient was seen laying in bed in his room but was directable and agreeable to speak with appeals writer in the office. Patient states feeling pretty tired today however he reports sleeping well last night. Patient's affect was notably flat and nonreactive. He rates his depression is higher than his anxiety today however at this time patient denies any suicidal or homical ideations, intent or plan. He feels like this is because he is in the hospital and if he was discharged home his suicidal thoughts would likely resurface. He denied any alcohol cravings or withdrawal symptoms. He spoke to his yesterday. Discussed with the patient the conversation appeals writer had with his outpatient provider Dr. Burdick and patient was on board with possibly starting lithium given his chronic suicidal ideations. Discussed with the patient his alcohol use and how that could also be contributing to his depressive symptoms. Will continue to encourage patient to look into substance abuse treatment including rehab. Patient denies any auditory, visual hallucinations and denies any par anoia or delusions. Patient denies any side effects from the medications and has been compliant with meds. Mental Status Exam: General Appearance: Patient appears to be stated age is alert, directable, and cooperative. Behavior: Patient is calmly seated without any agitated behavior. Speech: Patient's speech is fluent and nonpressured. Mood/Affect: Mood is "okay ", affect is congruent and flat. Suicidality/Homicidality: Patient denies having any suicidal or homicidal ideation intent or plan. Perceptions: Patient denies any visual hallucinations and denies any auditory hallucinations Though content/process: There is no evidence of any delusional thought content and thought process is linear and goal-directed. Memory and concentration: AOX3, grossly intact for the purposes of this session Judgment and insight: Improving mildly Assessment Major depressive disorder, recurrent, moderate Rule out substance-induced mood disorder Alcohol use disorder severe Tobacco use disorder Generalized anxiety disorder Plan: -Patient continues to meet criteria for inpatient psychiatric admission for symptom stabilization and safety. Patient has not signed adult voluntary form and medication consent and was placed in patient's chart. -Medications: Increase Paxil to 20 mg daily today for depression and anxiety, increase naltrexone to 50 mg at bedtime for alcohol cravings, continue trazodone 25 mg at bedtime for sleep. -Labs: BMP ordered to review creatinine given the potential to start lithium. TSH and recent EKG were reviewed. -Continue CIWA protocol given elevated alcohol level prior to admission -When necessary Ativan and Haldol for agitation/aggression. -NRT -nicotine patch -SW on board for discharge planning. Encouraged the patient to participate in milieu. Currently awaiting deferral with energy attorney and court date. Anticipate discharge next week, home with
[2024-05-29] MEDS: PARoxetine 10 MG TAB PO ONE (10:25)
[2024-05-29 11:33] LABS: African American GFR (CKD) >90 (>60 ml/min/1.73 sqM); Anion Gap 2 mmol/L; Blood Urea Nitrogen 9 mg/dL (9-20); Carbon Dioxide 27 mmol/L (22-30); Chloride 108 mmol/L (98-107); Glucose 93 mg/dL (74-99); Non-African American GFR(CKD) >90 (>60 ml/min/1.73 sqM); Potassium 4.5 mmol/L (3.5-5.1); Sodium 137 mmol/L (137-145)
[2024-05-29] MEDS: NALTREXONE HCL 50 MG TAB PO SCH (21:50)
[2024-05-30] MEDS: PARoxetine 20 MG TAB PO SCH (08:23)
--- NOTE | 2024-05-30 10:40 | P.PN ---
Progress Note - Text Progress Note Date: 05/30/24 Interval History: Patient was seen laying in bed but was directable and agreeable to speak with advertising copy writer in the office. Patient states feeling better today. He reports improved sleep but did mention feeling fatigued during the day that impacts his ability to go to groups. He was encouraged to attend as many groups as he can. He states speaking to the clinical programmer yesterday and signed a deferral and he was agreeable to taking his medications and following up outpatient upon discharge. He denied any alcohol cravings or withdrawal symptoms. Patient's previous alcohol use was discussed during this time and he was encouraged to continue maintaining his sobriety upon discharge given its impact on his mental health. At this time patient denies any suicidal or homical ideations, intent or plan. Patient denies any auditory, visual hallucinations and denies any paranoia or delusions. Patient denies any side effects from the medications and has been compliant with meds. Mental Status Exam: General Appearance: Patient appears to be stated age is alert, directable, and cooperative. Behavior: Patient is calmly seated without any agitated behavior. Speech: Patient's speech is fluent and nonpressured. Mood/Affect: Mood is improving mildly, affect is congruent and blunted. Suicidality/Homicidality: Patient denies having any suicidal or homicidal ideation intent or plan. Perceptions: Patient denies any visual hallucinations and denies any auditory hallucinations Though content/process: There is no evidence of any delusional thought content and thought process is linear and goal-directed. Memory and concentration: AOX3, grossly intact for the purposes of this session Judgment and insight: Improving mildly Assessment Major depressive disorder, recurrent, moderate Rule out substance-induced mood disorder Alcohol use disorder, severe Nicotine dependence Generalized anxiety disorder Plan: -Patient continues to meet criteria for inpatient psychiatric admission for symptom stabilization and safety. Patient has not signed adult voluntary form and medication consent and was placed in patient's chart. -Medications: Increase Paxil to 30 mg daily tomorrow for depression and anxiety and continue other medications as prescribed including naltrexone 50 mg at bedtime for alcohol cravings and trazodone 25 mg at bedtime for sleep. Will hold off from initiating lithium given patient's improvement in his mentation -When necessary Ativan and Haldol for agitation/aggression. -NRT -nicotine patch -SW on board for discharge planning. Encouraged the patient to participate in milieu. Patient signed a deferral on 05/29/2024. Anticipate discharge early next week pending stabilization and depressive symptoms.
[2024-05-31] MEDS: PARoxetine 10 MG TAB PO SCH (08:28)
--- NOTE | 2024-05-31 10:58 | P.PN ---
Progress Note - Text Progress Note Date: 05/31/24 Interval history: Patient was seen laying in his bed today and was directable and agreeable to speak with sports writer. Patient claims that he slept fairly last night, denied any overnight complaints. He claims that his mood and anxiety been mildly improving since yesterday. He was attempting to cooperate, logical and thought process. At this time patient denies any suicidal or homicidal ideations intent or plan. Denies any Auditory or visual hallucinations. Patient denies any side effects from the medications and has been compliant with meds. Mental status exam: General Appearance: Patient appears to be stated age is alert, directable, and cooperative. Laying in bed. Behavior: No agitated behavior. Patient is calm and directable attempts to cooperate Speech: Patient's speech is fluent and nonpressured. Mood/Affect: Mood is improving mildly, affect is congruent and constricted. Suicidality/Homicidality: Patient denies having any suicidal or homicidal ideation intent or plan. Perceptions: Patient denies any auditory or visual hallucinations. Though content/process: There is no evidence of any delusional thought content and thought process is linear and goal-directed. Fairly concrete Memory and concentration: AOX3, grossly intact for the purposes of this session Judgment and insight: improving mildly Assessment/Plan: Continue with current diagnosis. Patient continues to meet criteria for inpatient psychiatric admission for symptom stabilization and safety. Patient will be maintained on current psychotropic medication regimen. Monitor for medication compliance and for any psychotropic medication side effects. Will continue to monitor ongoing response to treatment. Encouraged participation in milieu.
[2024-06-01 07:19] VITALS: RESP 16
--- NOTE | 2024-06-01 12:45 | P.PN ---
Progress Note - Text Progress Note Date: 06/01/24 Interval history: Patient was seen laying in his bed today and was directable and agreeable to speak with sba underwriter. Patient claims that he slept fairly last night, denied any overnight complaints. He is not complaining of any problems with his mood. States that he is feeling a bit anxious. He was fairly hesitant in the speech today. He was attempting to cooperate, logical and thought process. At this time patient denies any suicidal or homicidal ideations intent or plan. Denies any Auditory or visual hallucinations. Patient denies any side effects from the medications and has been compliant with meds. Mental status exam: General Appearance: Patient appears to be stated age is alert, directable, and cooperative sitting at the side of his bed Behavior: No agitated behavior. Patient is calm and directable attempts to cooperate Speech: Patient's speech is fluent and nonpressured. Mood/Affect: Mood is improving mildly, affect is congruent and constricted. Suicidality/Homicidality: Patient denies having any suicidal or homicidal ideation intent or plan. Perceptions: Patient denies any auditory or visual hallucinations. Though content/process: There is no evidence of any delusional thought content and thought process is linear and goal-directed. Fairly concrete, improving mildly Memory and concentration: AOX3, grossly intact for the purposes of this session Judgment and insight: improving mildly Assessment/Plan: Continue with current diagnosis. Patient continues to meet criteria for inpatient psychiatric admission for symptom stabilization and safety. Patient will be maintained on current psychotropic medication regimen. Monitor for medication compliance and for any psychotropic medication side effects. Will continue to monitor ongoing response to treatment. Encouraged participation in milieu.
[2024-06-02 06:57] VITALS: BP 112/73; PULSE 58; TEMP 98.1
--- NOTE | 2024-06-02 13:48 | P.DS ---
Providers Date of admission: 05/27/24 18:41 Expected date of discharge: 06/02/24 Attending physician: Marilu Ludwig MD Consults: 05/27/24 17:51 Consult Physician Routine Consulting Provider: Joselin Jarqiun Consult Reason/Comments: H&P and medical Do you want consulting provider notified?: Yes Primary care physician: Najma Ha PAC - Discharge Diagnosis(es) (1) Alcohol dependence Current Visit: Yes Status: Acute Priority: High (2) Major depressive disorder Current Visit: Yes Status: Acute Priority: High (3) Generalized anxiety disorder Current Visit: Yes Status: Chronic Priority: Medium (4) Tobacco use disorder Current Visit: Yes Status: Chronic Priority: Low Hospital Course: Admission HPI: Admission note was completed by leader writer "IDENTIFYING DATA: Patient is a 59-year-old, male currently living in [facility] HPI: Patient presented to [facility] with a chief complaint of suicidal ideations. Per petition: "Juan F presents with flat affect and depressed mood. Hopeless and helpless. States cannot deal with life anymore. States suicidal. Not sleeping or eating." Per clinical certificate: "Patient states he wants to . And just wants it all to end. He is not sleeping and stopped taking meds. " Patient was seen wandering the halls but readily agreed to interview in office. He expresses a 2-1/2-year period of depression that prompted him to self medicate with alcohol. He expresses difficulty with doing most things including tending to his ADLs and easily being overwhelmed. He expresses frustration with his inability to feel better as he feels like he is a strong individual. He reports poor sleep and appetite, hopelessness and helplessness, low energy, and suicidal thoughts but denies any plan or intent. He feels like these thoughts are worsening but he does admit to drinking 1 pint a day that causes him to sometimes forget to take his psychotropic medications. He states not taking his medications for the past 3 days. He reports 1 prior rehab stay roughly 32 years ago at [place] and he was previously doing really well with sobriety until his depression started. He reports being open to medications to help with cravings and he denied any withdrawal symptoms today. He appears to not be interested in rehab at this time. He reports anxiety described as worrying about many different things outside of his control in addition to restlessness and feeling on edge. Patient denies any current active suicidal or homicidal ideations intent or plan. At this time patient denies any auditory or visual hallucinations. Patient denies any flight of ideas racing thoughts and increased in goal directed behavior. He reports smoking roughly 20 to 30 cigarettes/day. PAST PSYCHIATRIC HISTORY: Patient has a history of alcohol use disorder, depression, anxiety. He is currently prescribed Paxil 30 mg daily, Klonopin 0.5 mg daily as needed. He follows with [facility] and has a therapist there as well. Patient reports at least 4 previous hospitalizations with the first being in 2021, most recent April 2024 at [facility]. Patient denies any history of suicide attempts in the past." Hospital course: Upon admission to the unit patient was admitted involuntarily on a petition and certificate and a second certificate was completed and faxed to the courts. Patient ended up signing a deferral with the insurance defense attorney and agreeing to treatment. Patient got along well with other patients on the unit and followed unit protocol. Patient was largely isolative but did attend a few groups with encouragement. Patient was compliant with the medications and denied any side effects throughout hospital course. Patient was started on Paxil and this was increased to 30 mg daily for depression and anxiety, naltrexone increased to 50 mg at bedtime for alcohol cravings, and trazodone 25 mg at bedtime for sleep however patient did not wish to be discharged on this medication. Patient spoke of his stressors and engaged in therapy both group and individual. Patient was also seen by medical team for history and physical exam. Throughout the course of the hospitalization patient gradually improved with regards to mood, anxiety, sleep and returned back to their baseline level of functioning. On the day of discharge patient denied any suicidal or homicidal ideations intent or plan denied any auditory or visual hallucinations. The patient denied any access to guns or weapons. Patient denied any paranoia and did not endorse any delusions. Patient does have a significant history of substance abuse and was counseled on abstaining from all substances including alcohol and marijuana. Patient was offered however declined inpatient substance-abuse rehab. Patient was also counseled on the medications and need for regular compliance and was encouraged to follow-up with their outpatient appointment for mental health and also for primary care. Prior to discharge a family meeting will be arranged by social services counselor to answer any questions and ensure safety upon discharge incuding making sure that guns/weapons are either removed from the home or locked away. Mental status exam: General Appearance: Patient appears to be stated age is alert, pleasant, and cooperative. Patient is in no acute distress and has improved hygiene and grooming Behavior: Patient is calmly seated without any agitated behavior. Speech: Patient's speech is fluent and nonpressured. Mood/Affect: Patient reports their mood is "better", affect is congruent and blunted Suicidality/Homicidality: Patient denies having any suicidal or homicidal ideation intent or plan. Perceptions: Patient denies any auditory or visual hallucinations. Though content/process: There is no evidence of any delusional thought content and thought process is linear and goal-directed. More future oriented Memory and concentration: AOX3, grossly intact for the purposes of this session. Can spell "WORLD" backwards correctly. Judgment and insight: Chronically poor, however has improved with guarded prognosis Impression: Major depressive disorder Alcohol dependence Generalized anxiety disorder Nicotine dependence Plan: -Continue with discharge today as patient has improved and stabilized psychiatrically and is not currently an imminent threat to themself and/or others. Patient will remain at chronically elevated risk for harm to self and/or others due to their impulsivity and substance abuse. -Continue medications: Continue Paxil 30 mg daily for depression and anxiety and naltrexone 50 mg at bedtime for alcohol cravings -Patient was counseled on the need for medication compliance and appropriate follow-up at mental health and also primary care for medical issues. Patient verbalized understanding and agreed. -Social work to help coordinate patients discharge today also to ensure safe home environment that guns/weapons are either removed from the home or locked away. Social work also to arrange for patients follow up appointments with [facility] for psychiatric care along with follow up with primary care provider. -Patient counseled on abstaining from recreational drugs and marijuana and alcohol. Was informed/educated on the adverse effects on their physical and mental health. Patient verbally agreed and understood. Patient was offered substance abuse treatment however declined at this time. -Patient was instructed to return to the hospital or seek immediate medical care if their psychiatric or medical symptoms do worsen or reoccur. Abnormal Labs 05/28/24 05/28/24 05/29/24 06:57 12:57 10:48 Chloride 108 H Cholesterol 254.00 H LDL Cholesterol, Calc 167.0 H HDL Cholesterol 71.40 H Urine Ketones 1+ H Urine Blood Small H Urine Mucus Rare H Allergies Allergy/AdvReac Type Severity Reaction Status Date / Time No Known Allergies Allergy Verified 04/22/24 18:47 Vital Signs Temp 98.1 F 06/02/24 06:22 Pulse 58 L 06/02/24 06:22 Resp 16 06/02/24 06:22 BP 112/73 06/02/24 06:22 Pulse Ox 97 06/02/24 06:22 FiO2 Intake & Output 06/01/24 06/02/24 06/02/24 18:59 06:59 18:59 Weight 65.5 kg Patient Condition at Discharge: Stable Plan - Discharge Summary New Discharge Prescriptions: New Prasugrel [Effient] 10 mg PO DAILY tab Naltrexone HCl [Revia] 50 mg PO HS 30 Days #30 tab PARoxetine [Paxil] 30 mg PO DAILY 30 Days #90 tab Thiamine [Vitamin B-1] 100 mg PO DAILY 30 Days #30 tab Continue Metoprolol Succinate (ER) [Toprol XL] 50 mg PO DAILY Aspirin 81 mg PO DAILY Atorvastatin [Lipitor] 80 mg PO HS lisinopriL [Zestril] 2.5 mg PO DAILY Discontinued Prasugrel [Effient] 10 mg PO DAILY Magnesium (Unknown Strength) 1 dose PO HS Co Q-10 (Unkown Strength) 1 dose PO HS FLUoxetine HCL [PROzac] 10 mg PO DAILY 15 Days #15 cap Discharge Medication List Aspirin 81 mg PO DAILY 02/16/24 [History] Atorvastatin [Lipitor] 80 mg PO HS 02/16/24 [History] Metoprolol Succinate (ER) [Toprol XL] 50 mg PO DAILY 02/16/24 [History] lisinopriL [Zestril] 2.5 mg PO DAILY 02/16/24 [History] Naltrexone HCl [Revia] 50 mg PO HS 30 Days #30 tab 06/02/24 [Rx] PARoxetine [Paxil] 30 mg PO DAILY 30 Days #90 tab 06/02/24 [Rx] Prasugrel [Effient] 10 mg PO DAILY tab 06/02/24 [Rx] Thiamine [Vitamin B-1] 100 mg PO DAILY 30 Days #30 tab 06/02/24 [Rx] Follow up Appointment(s)/Referral(s): [facility] [Outside] - 06/09/24 12:30 pm (06/09 at 12:30pm with José Tidwell II 06/17 at 10:30am Heavenly Jessica NP) Najma Ha PAC [Primary Care Provider] - 1 Week Patient Instructions/Handouts: How to Stop Smoking (DC), Depression (DC), Abuse of Alcohol (DC), Anxiety (GEN) Activity/Diet/Wound Care/Special Instructions: Avoid the use of street drugs and alcohol. Take all medications as prescribed. When you are in need of refills on your medications, please contact your medical provider and/or outpatient psychiatrist/provider to have this done. Please go to your scheduled outpatient appointment for aftercare treatment. If symptoms return or become worse, call the crisis line at and/or go to the nearest emergency room for evaluation. National Suicide Hotline 588 Discharge Disposition: HOME SELF-CARE
== END 2024-06-02 15:08 | disposition home or self-care (01) | DRG 775 ==
LOC: 3MHU 18:41
PROVIDERS: ADMIT Psychiatry & Neurology Psychiatry; ATTEND Psychiatry & Neurology Psychiatry
PROC: HZ2ZZZZ Detoxification Services for Substance Abuse Treatment (ICD-10-PCS; principal; 2024-05-27)
DX: F10.20 Alcohol dependence, uncomplicated (principal); E78.5 Hyperlipidemia, unspecified; R45.851 Suicidal ideations; F17.210 Nicotine dependence, cigarettes, uncomplicated; I25.10 Atherosclerotic heart disease of native coronary artery without angina pectoris; Z71.41 Alcohol abuse counseling and surveillance of alcoholic; Z71.6 Tobacco abuse counseling; F33.1 Major depressive disorder, recurrent, moderate; F41.1 Generalized anxiety disorder; I10 Essential (primary) hypertension; I25.2 Old myocardial infarction; Z79.02 Long term (current) use of antithrombotics/antiplatelets; Z79.82 Long term (current) use of aspirin; Z79.899 Other long term (current) drug therapy; Z95.5 Presence of coronary angioplasty implant and graft
CPT/HCPCS: 80048; 80061; 80306; 81001; 83036; 84443

== ENCOUNTER 2024-06-26 22:49 | Inpatient (IN) | payer MEDICAID ==
[2024-06-26] MEDS ORDERED: haloperidoL 5 MG TAB PO PRN (23:14)
[2024-06-26] MEDS ORDERED: IBUPROFEN 600 MG TAB PO PRN (23:14)
[2024-06-26] MEDS ORDERED: MAGNESIUM HYDROXIDE 2,400 MG/30 ML CUP PO PRN (23:14)
[2024-06-26] MEDS ORDERED: LORazepam 1 MG TAB PO PRN ×2 (23:14)
[2024-06-26] MEDS ORDERED: MAG HYDROX/AL HYDROX/SIMETH 355 ML BOTTLE PO PRN (23:14)
[2024-06-26] MEDS ORDERED: HALOPERIDOL LACTATE 5 MG/ML 1 ML VIAL IM PRN (23:14)
[2024-06-26] MEDS ORDERED: ACETAMINOPHEN TAB 325 MG TAB PO PRN (23:14)
[2024-06-26] MEDS ORDERED: LORazepam 2 MG/ML INJ IM PRN (23:14)
[2024-06-27] MEDS: LORazepam 1 MG TAB PO PRN (05:11)
[2024-06-27 07:29] LABS: Basophils # (A) 0.1 k/uL (0-0.2); Basophils % (A) 1 %; Eosinophils # (A) 0.5 k/uL (0-0.7); Eosinophils % (A) 7 %; HCT 45.8 % (39.0-53.0); Lymphocytes # (A) 1.4 k/uL (1.0-4.8); Lymphocytes % (A) 21 %; MCH 30.6 pg (25.0-35.0); MCHC 32.8 g/dL (31.0-37.0); MCV 93.5 fL (80.0-100.0); Mean Platelet Volume 8.6; Monocytes # (A) 0.5 k/uL (0-1.0); Monocytes % (A) 8 %; Neutrophils # (A) 3.9 k/uL (1.3-7.7); Neutrophils % (A) 61 %; Platelet Count 151 k/uL (150-450); RDW 14.5 % (11.5-15.5); WBC 6.5 k/uL (3.8-10.6)
[2024-06-27 07:40] LABS: ALT 15 U/L (4-49); AST 29 U/L (17-59); African American GFR (CKD) >90 (>60 ml/min/1.73 sqM); Albumin 3.4 g/dL (3.5-5.0); Alkaline Phosphatase 87 U/L (38-126); Anion Gap 2 mmol/L; Bilirubin, Delta 0.1 mg/dL (0.0-0.2); Bilirubin,Unconjugated 0.5 mg/dL (0.0-1.1); Blood Urea Nitrogen 4 mg/dL (9-20); Calcium 8.6 mg/dL (8.4-10.2); Carbon Dioxide 26 mmol/L (22-30); Chloride 108 mmol/L (98-107); Glucose 102 mg/dL (74-99); Non-African American GFR(CKD) >90 (>60 ml/min/1.73 sqM); Potassium 3.8 mmol/L (3.5-5.1); Sodium 136 mmol/L (137-145); Total Bilirubin 0.6 mg/dL (0.2-1.3); Total Protein 5.8 g/dL (6.3-8.2)
[2024-06-27] MEDS: MULTIVITAMINS, THERA 1 EACH TAB PO SCH (08:37)
[2024-06-27] MEDS: FOLIC ACID 1 MG TAB PO SCH (08:37)
[2024-06-27] MEDS: FAMOTIDINE 20 MG TAB PO SCH (08:37)
[2024-06-27] MEDS: THIAMINE 100 MG TAB PO SCH (08:37)
[2024-06-27] MEDS: ASPIRIN 81 MG PO SCH (08:37)
[2024-06-27] MEDS: NICOTINE 14MG/24HR PATCH TRANSDERM SCH (08:38)
[2024-06-27] MEDS: METOPROLOL SUCCINATE (ER) 50 MG TAB.ER.24H PO SCH (09:07)
[2024-06-27] MEDS: PRASUGREL 10 MG TAB PO SCH (09:07)
--- NOTE | 2024-06-27 12:31 | P.HP ---
Psychiatric H&P - . H&P Date: 06/27/24 History & Physical: Allergies Allergy/AdvReac Type Severity Reaction Status Date / Time No Known Allergies Allergy Verified 04/22/24 18:47 Vital Signs Temp 97.6 F 06/27/24 05:02 Pulse 96 06/27/24 05:02 Resp 20 06/27/24 05:02 BP 167/106 06/27/24 05:02 Pulse Ox 96 06/27/24 05:02 FiO2 Intake & Output 06/26/24 06/27/24 06/27/24 18:59 06:59 18:59 Weight 66 kg Laboratory Last Values WBC 6.5 k/uL (3.8-10.6) 06/27/24 07:17 RBC 4.90 m/uL (4.30-5.90) 06/27/24 07:17 Hgb 15.0 gm/dL (13.0-17.5) 06/27/24 07:17 Hct 45.8 % (39.0-53.0) 06/27/24 07:17 MCV 93.5 fL (80.0-100.0) 06/27/24 07:17 MCH 30.6 pg (25.0-35.0) 06/27/24 07:17 MCHC 32.8 g/dL (31.0-37.0) 06/27/24 07:17 RDW 14.5 % (11.5-15.5) 06/27/24 07:17 Plt Count 151 k/uL (150-450) 06/27/24 07:17 MPV 8.6 06/27/24 07:17 Neutrophils % 61 % 06/27/24 07:17 Lymphocytes % 21 % 06/27/24 07:17 Monocytes % 8 % 06/27/24 07:17 Eosinophils % 7 % 06/27/24 07:17 Basophils % 1 % 06/27/24 07:17 Neutrophils # 3.9 k/uL (1.3-7.7) 06/27/24 07:17 Lymphocytes # 1.4 k/uL (1.0-4.8) 06/27/24 07:17 Monocytes # 0.5 k/uL (0-1.0) 06/27/24 07:17 Eosinophils # 0.5 k/uL (0-0.7) 06/27/24 07:17 Basophils # 0.1 k/uL (0-0.2) 06/27/24 07:17 Sodium 136 mmol/L (137-145) L 06/27/24 07:17 Potassium 3.8 mmol/L (3.5-5.1) 06/27/24 07:17 Chloride 108 mmol/L (98-107) H 06/27/24 07:17 Carbon Dioxide 26 mmol/L (22-30) 06/27/24 07:17 Anion Gap 2 mmol/L 06/27/24 07:17 BUN 4 mg/dL (9-20) L 06/27/24 07:17 Creatinine 0.59 mg/dL (0.66-1.25) L 06/27/24 07:17 Est GFR (CKD-EPI)AfAm >90 (>60 ml/min/1.73 sqM) 06/27/24 07:17 Est GFR (CKD-EPI)NonAf >90 (>60 ml/min/1.73 sqM) 06/27/24 07:17 Glucose 102 mg/dL (74-99) H 06/27/24 07:[address] Glu mg/dL 114 mg/dL 06/27/24 07:17 Hemoglobin A1c 5.6 % (<=6.0) 06/27/24 07:17 Calcium 8.6 mg/dL (8.4-10.2) 06/27/24 07:17 Total Bilirubin 0.6 mg/dL (0.2-1.3) 06/27/24 07:17 Conjugated Bilirubin 0.0 mg/dL (0.0-0.3) 06/27/24 07:17 Unconjugated Bilirubin 0.5 mg/dL (0.0-1.1) 06/27/24 07:17 Delta Bilirubin 0.1 mg/dL (0.0-0.2) 06/27/24 07:17 AST 29 U/L (17-59) 06/27/24 07:17 ALT 15 U/L (4-49) 06/27/24 07:17 Alkaline Phosphatase 87 U/L (38-126) 06/27/24 07:17 Total Protein 5.8 g/dL (6.3-8.2) L 06/27/24 07:17 Albumin 3.4 g/dL (3.5-5.0) L 06/27/24 07:17 TSH 1.180 mIU/L (0.465-4.680) 06/27/24 07:17 06/27/24 12:19 IDENTIFYING DATA: Patient is a 59-year-old male, currently laid off and living with in [facility] CHIEF COMPLAINT: Suicidal ideations, alcohol use, medication nonadherence HPI: Patient presented to the hospital for suicidal thoughts. EPS note, "[facility] for [facility] ideation with plan to OD and unable to contract for safety. Patient arriving with petition/clinical certificate with diagnosis of depression. Patient reported increased thoughts of suicide, self harm via excessive ETOH consumption, and increased depression. Patient has history of multiple inpatient psychiatric hospitalizations related to depression and suicidal ideation. Patient reportedly binge drank a pint on 06/24 and 06/25 with last drink on 06/25. Patient reportedly has CIWA of 5." Of note patient's filled out a petition that states "not eating or taking medications for days, drinking alcohol at the toxic levels, making statements such as I just want to ". Patient seen and evaluated on the unit and was agreeable to speak to instructional writer in office. He reports self sabotaging and that this was what ultimately landed him in the hospital. Patient appeared to minimize several concerns including his alcohol use and being adherent with his medications. He states not feeling like himself for the past 2-1/2 years with high anxiety which is the ultimate reason why he began using alcohol excessively. Patient appeared contemplative in his alcohol use in that he seemed initially agreeable to going to rehab upon discharge as he reports drinking roughly 1 pint of alcohol per day. He denied any withdrawal symptoms right now and CIWA has been low thus far. He states he has only been off his meds for about 1-1/2 days. He reports feeling empty inside and is reporting sleep and appetite difficulties over the last few days, hopelessness, low energy and mood denies any poor concentration. He was unable to describe his anxiety however did report restlessness and feeling on edge. Patient denies any suicidal or homicidal ideations intent or plan. At this time patient denies any auditory or visual hallucinations. Patient denies any flight of ideas racing thoughts and increased in goal directed behavior. Patient admits to using cigarettes and alcohol. PAST PSYCHIATRIC HISTORY: Patient has a history of alcohol use disorder, depression, anxiety. His most recent medications to which she has been nonadherent on include Paxil 40 mg daily, naltrexone 50 mg daily, lithium 150 mg twice daily. Patient reports at least 5 inpatient hospitalizations, most recent being earlier this month from 05/27 till 06/02. Patient follows with [facility] outpatient who had plans on transferring his case to [facility] for his ongoing substance use. Patient denies any history of suicide attempts in the past. PMH: as per ER note ALLERGIES: as per EMR SUBSTANCE USE HISTORY: Patient reports drinking 1 pint per day and smoking 20 to 30 cigarettes/day FAMILY PSYCHIATRIC/SUBSTANCE USE HISTORY: Denies SOCIAL HISTORY: Patient is and has 3 children, currently living with and [facility]. He has an associates degree and is currently laid off from his job for the past 4 months. MENTAL STATUS EXAM: General Appearance: Patient appears to be stated age is alert, directable, and attempts to cooperate. Patient appears to have poor hygiene and grooming. Behavior: Patient is seated without any agitated behavior. Speech: Patient's speech is fluent and nonpressured. Mood/Affect: Patient reports their mood is depressed, affect is congruent and constricted. Suicidality/Homicidality: Patient denies having any homicidal ideation intent or plan. Denies any suicidal ideations intent or plan Perceptions: Patient denies any visual hallucinations and denies any auditory hallucinations Though content/process: There is no evidence of any delusional thought content and thought process is linear and logical. Memory and concentration: AOX3, grossly intact for the purposes of this session. Can spell "WORLD" backwards Judgment and insight: Poor STRENGTHS/WEAKNESSES: strength is that patient is resilient. Weakness is that patient has poor judgment, uses substances and is impulsive INTELLECT: Average IMPRESSIONS: Depression unspecified, likely substance-induced Alcohol use disorder, severe Tobacco use disorder Generalized anxiety disorder PLAN: -Patient is admitted under involuntary status to [facility] for stabilization of psychiatric symptoms and safety. Patient has not signed adult voluntary form and medication consent and is placed in patient's chart. Patient's [facility] will file a demand given his nonadherence as he is on a deferral -Medications : Restart Paxil at 20 mg daily for depression/anxiety, naltrexone 50 mg at bedtime for cravings but will hold off on lithium as patient is currently on lisinopril -Ativan and Haldol PRN for agitation/aggression -Started thiamine, MVM for etoh use -CIWA protocol with Ativan PRN for ETOH withdrawal. Scheduled Librium for alcohol withdrawal with plan to taper. -Patient was counselled on substance abuse and desired to cut back on use-Will offer patient subtance use rehab to which patient states being open minded to going upon discharge -Patient was informed of the risks, benefits and side effects of the medication and patient verbally consented to taking the medications. Patient signed med consent form and was placed in chart. -Internal Medicine consult to perform medical evaluation and physical. -NRT -nicotine patch -SW on board for discharge planning. Encourage patient to participate in groups to work on coping skills. Demand will be filed by patient's outpatient team as he is on a deferral and has been nonadherent with medications 06/27/24 12:20
[2024-06-27] MEDS: PARoxetine 20 MG TAB PO SCH (13:12)
[2024-06-27 16:14] LABS: Chol/HDL Ratio 2.17 Ratio; LDL Cholesterol,Calculated 99.1 mg/dL (0.0-131.0); VLDL Calculation 11.38 mg/dL (5.00-40.00)
[2024-06-27] MEDS: NALTREXONE HCL 50 MG TAB PO SCH (20:54)
[2024-06-27] MEDS: ATORVASTATIN 80 MG TAB PO SCH (20:54)
[2024-06-27 21:21] LABS: Urine Alcohol Negative (Negative); Urine Barbiturate Negative (Negative); Urine Cocaine Negative (Negative); Urine Methadone Negative (Negative); Urine Opiates Negative (Negative); Urine Phencyclidine Negative (Negative)
[2024-06-27] MEDS ORDERED: cloNIDine HCL 0.2 MG TAB PO PRN (21:25)
--- NOTE | 2024-06-27 23:02 | P.CONS ---
History of Present Illness - Reason for Consult Consult date: 06/27/24 medical evaluation - Chief Complaint Suicidal ideation - History of Present Illness History of present illness; Juan F Marmolejo 59-year-old male with CAD with stent placement, and hypertension presenting with suicidal ideation. He is being seen by psychiatry for SI, alcohol use, depression, anxiety and medication nonadherence. Patient is sitting up in bed resting with no complaints of pain or other concerns. Patient reports absence of fever, chills, weight loss, chest pain, palpitations, dysp mars, cough, nausea, vomiting, constipation, diarrhea, abdominal pain, weakness, myalgia, dizziness, headache, and dysuria. Internal medicine was consulted for medical management. Substance use history: Endorses history of alcohol use 1 pint daily, smoking 25 to 30 cigarettes daily, and reports no recreational or IV drug use, REVIEW OF SYSTEMS: All systems reviewed, pertinent positives and negatives noted in HPI. All other symptoms are negative. PHYSICAL EXAMINATION: Vitals reviewed GENERAL: Diaphoresis. No acute distress. Well developed, well nourished. HEENT: Pupils are round and equally reacting to light. EOMI. No scleral icterus. Normocephalic, atraumatic. CARDIOVASCULAR: S1 and S2 present. No murmurs, rubs, or gallops. PULMONARY: Chest is clear to auscultation, no wheezing, rhonchi, or crackles. ABDOMEN: Soft, nontender, nondistended, normoactive bowel sounds. No palpable organomegaly. MUSCULOSKELETAL: No apparent joint swelling and deformities. EXTREMITIES: No apparent cyanosis, clubbing, or pedal edema. NEUROLOGICAL: The patient is alert and oriented x3, 5/5 strength bilateral UE and LE, CN IIXII with no deficits noted SKIN: No apparent rashes. Assessment and plan: Juan F Marmolejo 59-year-old male with CAD with stent placement, and hypertension presenting with suicidal ideation. Internal medicine was consulted for medical management. #Essential hypertension - Resume home Lisinopril Losartan 20 mg Begin clonidine 0.2 mg every 8 hours as needed for systolic blood pressure greater than 180 #Coronary artery disease history of stent placement Triglycerides 56 is WNL, cholesterol 205 is elevated, HDL cholesterol 94.5 is elevated - Resume home Aspirin, prasugrel - Resume home Statin - Resume home Metoprolol #GERD #Constipation - Begin famotidine 20 mg p.o. twice daily Begin MiraLAX 30 mL p.o. every 4 hours as needed Begin medical magnesia 2400 mg p.o. daily as needed # Suicidal ideation #Alcohol use disorder #Depression/anxiety -Psychiatric conditions managed by primary psychiatry team F: P.o. E: Replete as needed N: Heart healthy diet DVT ppx: Lovenox 40 mEq subcu daily Code status: Full code Patient is stable from medical stand point CBC and CMP reviewed Dictation was produced using [employer] dictation software. Please excuse any g rammatical, word or spelling errors. Past Medical History Past Medical History: Hyperlipidemia, Hypertension, Myocardial Infarction (MT) Additional Past Medical History / Comment(s): alcoholism, Hx MT Aug 2023= 2 cardiac stents Last Myocardial Infarction Date:: August 2023 History of Any Multi-Drug Resistant Organisms: None Reported Past Surgical History: Heart Catheterization With Stent Additional Past Surgical History / Comment(s): Two heart stents August 2023 Past Anesthesia/Blood Transfusion Reactions: No Reported Reaction Date of Last Stent Placement:: August 2023 Past Psychological History: Anxiety, Depression Smoking Status: Current every day smoker Past Alcohol Use History: Daily Past Drug Use History: None Reported - Past Family History Mother History Unknown: Yes Medications and Allergies Home Medications Medication Instructions Recorded Confirmed Type Aspirin 81 mg PO DAILY 02/16/24 06/27/24 History Atorvastatin [Lipitor] 80 mg PO HS 02/16/24 06/27/24 History Metoprolol Succinate (ER) [Toprol 50 mg PO DAILY 02/16/24 06/27/24 History XL] lisinopriL [Zestril] 2.5 mg PO DAILY 02/16/24 06/27/24 History Naltrexone HCl [Revia] 50 mg PO HS 30 Days #30 tab 06/02/24 06/27/24 Rx Prasugrel [Effient] 10 mg PO DAILY tab 06/02/24 06/27/24 Rx Thiamine [Vitamin B-1] 100 mg PO DAILY 30 Days #30 tab 06/02/24 06/27/24 Rx [place] Carbonate 150 mg PO BID 06/27/24 06/27/24 History PARoxetine HCL [Paxil] 40 mg PO HS 06/27/24 06/27/24 History Allergies Allergy/AdvReac Type Severity Reaction Status Date / Time No Known Allergies Allergy Verified 04/22/24 18:47 Physical Exam Vitals: Vital Signs Temp Pulse Resp BP Pulse Ox 06/27/24 05:02 97.8 F 93 18 121/82 100 Intake and Output 06/27/24 06/27/24 06/27/24 06:59 14:59 22:59 Other: Weight 66 kg Results CBC & Chem 7: 06/27/24 07:17 06/27/24 07:17 Labs: Abnormal Lab Results - Last 24 Hours (Table) 06/27/24 Range/Units 07:17 Sodium 136 L (137-145) mmol/L Chloride 108 H (98-107) mmol/L BUN 4 L (9-20) mg/dL Creatinine 0.59 L (0.66-1.25) mg/dL Glucose 102 H (74-99) mg/dL Total Protein 5.8 L (6.3-8.2) g/dL Albumin 3.4 L (3.5-5.0) g/dL Cholesterol 205.00 H (0.00-200.00) mg/dL HDL Cholesterol 94.50 H (40.00-60.00) mg/dL Assessment and Plan Assessment: I have seen and evaluated the patient today. I Discussed the case with the resident and agree with the resident's findings I edited the assessment and plan as necessary as documented in the resident's note.
[2024-06-28] MEDS: ENOXAPARIN 40 MG/0.4 ML SYRINGE SQ SCH (13:07)
--- NOTE | 2024-06-28 19:19 | P.PN ---
Progress Note - Text Progress Note Date: 06/28/24 Interval history: Patient was seen resting in lounge watching TV near peers. He was directable and agreeable to speak with engineering technical writer. He reports chronic high anxiety that he reports started to become problematic about 2 years ago. In August 2023 he has a heart attack and underwent two stents. At this time patient denies any suicidal or homicidal ideations intent or plan. Denies any auditory or visual hallucinations. He reports tends to feel anxious, frustrated. Patient denies any side effects from the medications and has been compliant with meds. He last showered on (today is Sunday). He states he normally showers twice a week since he has been laid off, since he stays home. Mental status exam: General Appearance: Patient appears to be stated age, is disheveled, unshowered. Behavior: No agitated behavior. Patient is calm and directable. Speech: Patient's speech is fluent and non-pressured. Mood/Affect: Mood is anxious, affect is congruent and constricted. Suicidality/Homicidality: Patient denies having any suicidal or homicidal ideation intent or plan. Perceptions: Patient denies any auditory or visual hallucinations. Though content/process: There is no evidence of any delusional thought content and thought process is ruminative and worries. Memory and concentration: AOX3, grossly intact for the purposes of this session Judgment and insight: improving mildly Assessment/Plan: Continue with current diagnosis. Patient continues to meet criteria for inpatient psychiatric admission for symptom stabilization and safety. Increase Paxil to 30 mg QHS for depression. Start Campral 666 mg TID for alcoholism, in addition to Naltrexone 50 mg QHS. Monitor for medication compliance and for any psychotropic medication side effects. Will continue to monitor ongoing response to treatment. Encouraged participation in milieu.
[2024-06-28] MEDS: ACAMPROSATE CALCIUM 333 MG TABLET.DR PO SCH (20:31)
[2024-06-29] MEDS: PARoxetine 10 MG TAB PO SCH (09:34)
--- NOTE | 2024-06-29 21:18 | P.PN ---
Progress Note - Text Progress Note Date: 06/29/24 Interval history: Patient was directable and agreeable to speak with personal lines underwriter. He appears easily irritated, anxious and frustrated again today on conversation today but attempts to minimize it. We discussed trying a low-dose Trileptal to help his mood but he refuses this today. At this time patient denies any suicidal or homicidal ideations intent or plan. Denies any auditory or visual hallucinations. Patient denies any side effects from the medications and has been compliant with meds. Mental status exam: General Appearance: Patient appears to be stated age, hygiene slightly improved today. Behavior: No agitated behavior. Patient is irritable. Speech: Patient's speech is fluent and non-pressured. Mood/Affect: Mood is anxious/frustrated/irritable, affect is congruent and constricted. Suicidality/Homicidality: Patient denies having any suicidal or homicidal idea tion intent or plan. Perceptions: Patient denies any auditory or visual hallucinations. Though content/process: There is no evidence of any delusional thought content and thought process is ruminative and worries. Memory and concentration: AOX3, grossly intact for the purposes of this session Judgment and insight: improving mildly Assessment/Plan: Continue with current diagnosis. Patient continues to meet criteria for inpatient psychiatric admission for symptom stabilization and safety. Continue Paxil 30 mg QHS for depression. Continue Campral 666 mg TID for alcoholism, in addition to Naltrexone 50 mg QHS. He refuses a trial of Trileptal for mood lability today. He does not want to try any new medications at this time despite still feeling anxious/irritated. Will defer this to his primary psychiatrist tomorrow. Monitor for medication compliance and for any psychotropic medication side effects. Will continue to monitor ongoing response to treatment. Encouraged participation in milieu.
--- NOTE | 2024-06-30 11:53 | P.PN ---
Progress Note - Text Progress Note Date: 06/30/24 Interval History: Patient was seen laying in bed and was directable and agreeable to speak with life underwriter in the office. He expressed no concerns today other than feeling fatigued however states he slept okay overnight. He mentioned the weekend being boring however expressed no concerns. States he spoke to his on Sunday and that things are well with her despite her petitioning him for treatment. He denied any cravings or withdrawal symptoms today. He reports low/moderate depression and anxiety today. Discussion was made regarding restarting lithium however patient is on lisinopril which increases the levels of lithium thus patient was encouraged to speak to his oyster tonger to whom he has an appointment on July 17 regarding switching lisinopril to a different medication that will not interact with lithium. He states he is still open to going to rehab upon discharge and he was provided the number to [facility]. Patient's outpatient team strongly encouraged patient to be discharged directly to rehab and not return home first. At this time patient denies any suicidal or homicidal ideations, intent or plan. Patient denies any auditory, visual hallucinations and denies any paranoia or delusions. Patient denies any side effects from the medications and has been compliant with meds. Mental Status Exam: General Appearance: Patient appears to be stated age is alert, directable, and cooperative. Behavior: Patient is calmly seated without any agitated behavior. Speech: Patient's speech is fluent however brief monotone Mood/Affect: Mood is improving mildly, affect is congruent and constricted. Suicidality/Homicidality: Patient denies having any suicidal or homicidal ideation intent or plan. Perceptions: Patient denies any visual hallucinations and denies any auditory hallucinations Though content/process: There is no evidence of any delusional thought content and thought process is linear and logical Memory and concentration: AOX3, grossly intact for the purposes of this session Judgment and insight: Improving mildly Assessment Depression unspecified, likely substance-induced Alcohol use disorder, severe Tobacco use disorder Generalized anxiety disorder Plan: -Patient continues to meet criteria for inpatient psychiatric admission for symptom stabilization and safety. Patient has not signed adult voluntary form and medication consent and was placed in patient's chart. -Medications: Increase Paxil to 40 mg daily tomorrow for depression/anxiety, continue naltrexone 50 mg at bedtime and Campral 6 6 6 mg 3 times daily for alcohol cravings and maintenance of sobriety -When necessary Ativan and Haldol for agitation/aggression. -Labs: Reviewed -NRT -nicotine patch -CIWA protocol with Ativan PRN for ETOH withdrawal. -SW on board for discharge planning. Encouraged the patient to participate in milieu. Patient is currently on a deferral from previous hospitalization. Anticipate discharge to rehab midweek
[2024-07-01 06:54] VITALS: TEMP 98.3
[2024-07-01] MEDS: PARoxetine 20 MG TAB PO SCH (08:51)
--- NOTE | 2024-07-01 12:46 | P.PN ---
Progress Note - Text Progress Note Date: 07/01/24 Interval History: Patient was seen laying in bed and was directable and agreeable to speak with writer editor in his room. Patient was updated on the national shortage of Campral and that this will be discontinued today. He otherwise denied any cravings or withdrawal symptoms today. Patient was able to contact [facility] yesterday with paperwork faxed over during that time. Patient is still agreeable with transferring directly to rehab upon discharge here. He reports both low depression and anxiety today. He reports good sleep despite feeling fatigued this morning. At this time patient denies any suicidal or homicidal ideations, intent or plan. Patient denies any auditory, visual hallucinations and denies any paranoia or delusions. Patient denies any side effects from the medications and has been compliant with meds. Mental Status Exam: General Appearance: Patient appears to be stated age is alert, directable, and cooperative. Behavior: Patient is calmly seated without any agitated behavior. Speech: Patient's speech is fluent and nonpressured. Mood/Affect: Mood is improving mildly, affect is congruent and blunted however more reactive and bright than previous encounters. Suicidality/Homicidality: Patient denies having any suicidal or homicidal ideation intent or plan. Perceptions: Patient denies any visual hallucinations and denies any auditory hallucinations Though content/process: There is no evidence of any delusional thought content and thought process is linear and logical. Memory and concentration: AOX3, grossly intact for the purposes of this session Judgment and insight: Improving mildly Assessment Depression, unspecified, likely substance-induced Alcohol use disorder, severe Nicotine dependence Generalized anxiety disorder Plan: -Patient continues to meet criteria for inpatient psychiatric admission for symptom stabilization and safety. Patient has not signed adult voluntary form and medication consent and was placed in patient's chart. -Medications: Paxil increased to 40 mg daily today for depression/anxiety, continue naltrexone 50 mg at bedtime for cravings, we will officially discontinue Campral 666 mg 3 times daily given nationwide shortage -When necessary Ativan and Haldol for agitation/aggression. -Labs: Reviewed -NRT -nicotine patch -CIWA protocol with Ativan PRN for ETOH withdrawal. -SW on board for discharge planning. Encouraged the patient to participate in milieu. Patient currently on a deferral from previous hospitalization. Anticipate discharge to rehab pending bed availability.
--- NOTE | 2024-07-02 12:26 | P.PN ---
Progress Note - Text Progress Note Date: 07/02/24 Interval History: Patient was seen in his room and was directable and agreeable to speak with wr iter in his room. He expressed no concerns and states feeling well today. Patient notably more reactive and affect than previous encounters. Patient was accepted at [facility] and anticipated discharge tomorrow there. Patient expressed mixed feelings regarding going to rehab and that he understands this is necessary to maintain his sobriety however he has to be away from home for some time. He otherwise denied any withdrawal symptoms or cravings. At this time patient denies any suicidal or homicidal ideations, intent or plan. Patient denies any auditory, visual hallucinations and denies any paranoia or delusions. Patient denies any side effects from the medications and has been compliant with meds. Mental Status Exam: General Appearance: Patient appears to be stated age is alert, directable, and cooperative. Behavior: Patient is calmly seated without any agitated behavior. Speech: Patient's speech is fluent and nonpressured. Mood/Affect: Mood is improving mildly, affect is congruent and blunted, more reactive. Suicidality/Homicidality: Patient denies having any suicidal or homicidal ideation intent or plan. Perceptions: Patient denies any visual hallucinations and denies any auditory hallucinations Though content/process: There is no evidence of any delusional thought content and thought process is linear and goal-directed. Memory and concentration: AOX3, grossly intact for the purposes of this session Judgment and insight: Improving mildly Assessment Depression, unspecified, likely substance-induced Alcohol use disorder, severe Nicotine dependence Generalized anxiety disorder Plan: -Patient continues to meet criteria for inpatient psychiatric admission for symptom stabilization and safety. Patient has not signed adult voluntary form and medication consent and was placed in patient's chart. -Medications: Continue Paxil 40 mg daily for depression/anxiety, naltrexone 50 mg at bedtime for alcohol cravings and will continue to hold Campral given the nationwide shortage -When necessary Ativan and Haldol for agitation/aggression. -Labs: Reviewed -NRT -nicotine patch -Discontinue CIWA protocol as CIWA scores have been 0 with no PRNs needed . -SW on board for discharge planning. Encouraged the patient to participate in milieu. Patient is currently on a deferral from previous hospitalization. Anticipate discharge to [facility] tomorrow
[2024-07-03 10:20] VITALS: BP 109/68; PULSE 62; RESP 20
--- NOTE | 2024-07-03 14:28 | P.DS ---
Providers Date of admission: 06/27/24 05:00 Expected date of discharge: 07/03/24 Attending physician: Marilu Ludwig MD Consults: 06/26/24 23:14 Consult Physician Routine Consulting Provider: Joselin Jarquin Consult Reason/Comments: History and Physical, New Admission Do you want consulting provider notified?: Yes Primary care physician: Najma Ha, PAC - Discharge Diagnosis(es) (1) Depression Status: Acute Priority: High (2) Alcohol dependence Status: Acute Priority: High (3) Generalized anxiety disorder Status: Chronic Priority: Medium (4) Tobacco use disorder Status: Chronic Priority: Low Hospital Course: Admission HPI: Admission note was completed by blurb writer "Patient presented to the hospital for suicidal thoughts. EPS note, "patient transfer from [facility] for suicidal ideation with plan to OD and unable to contract for safety. Patient arriving with petition/clinical certificate with diagnosis of depression. Patient reported increased thoughts of suicide, self harm via excessive ETOH consumption, and increased depression. Patient has history of multiple inpatient psychiatric hospitalizations related to depression and suicidal ideation. Patient reportedly binge drank a pint on 06/24 and 06/25 with last drink on 06/25. Patient reportedly has CIWA of 5." Of note patient's filled out a petition that states "not eating or taking medications for days, drinking alcohol at the toxic levels, making statements such as I just want to ". Patient seen and evaluated on the unit and was agreeable to speak to blurb writer in office. He reports self sabotaging and that this was what ultimately landed him in the hospital. Patient appeared to minimize several concerns including his alcohol use and being adherent with his medications. He states not feeling like himself for the past 2-1/2 years with high anxiety which is the ultimate reason why he began using alcohol excessively. Patient appeared contemplative in his alcohol use in that he seemed initially agreeable to going to rehab upon discharge as he reports drinking roughly 1 pint of alcohol per day. He denied any withdrawal symptoms right now and CIWA has been low thus far. He states he has only been off his meds for about 1-1/2 days. He reports feeling empty inside and is reporting sleep and appetite difficulties over the last few days, hopelessness, low energy and mood denies any poor concentration. He was unable to describe his anxiety however did report restlessness and feeling on edge. Patient denies any suicidal or homicidal ideations intent or plan. At this time patient denies any auditory or visual hallucinations. Patient denies any flight of ideas racing thoughts and increased in goal directed behavior. Patient admits to using cigarettes and alcohol." Hospital course: Upon admission to the unit patient was admitted involuntary however he was on a deferral from previous hospitalization that was continued during this admission.. Patient got along well with other patients on the unit and followed unit protocol. Patient was compliant with the medications and denied any side effects throughout hospital course. Patient was started on Paxil and this was increased to 40 mg daily for depression/anxiety, naltrexone 50 mg at bedtime for alcohol cravings, lithium 150 mg twice daily for mood stabilization/suicidal thoughts. Patient was initially started on Campral however given the nationwide shortage this was stopped. Patient spoke of his stressors however appear to be minimally engaged with expressing his psychosocial stressors that landed him in the hospital. Patient was also seen by medical team for history and physical exam. Throughout the course of the hospitalization patient gradually improved with regards to mood, anxiety, sleep and returned back to their baseline level of functioning. On the day of discharge patient denied any suicidal or homicidal ideations intent or plan denied any auditory or visual hallucinations. The patient denied any access to guns or weapons. Patient denied any paranoia and did not endorse any delusions. Patient does have a significant history of substance abuse and was counseled on abstaining from all substances including alcohol and marijuana. Patient ended up agreeing to inpatient subtance rehab. Patient was also counseled on the medications and need for regular compliance and was encouraged to follow-up with their outpatient appointment for mental health and also for primary care. Prior to discharge a family meeting will be arranged by social service agency director to answer any questions and ensure safety upon discharge incuding making sure that guns/weapons are either removed from the home or locked away. Patient's was able to pick patient up and drop him off at [facility] for rehab. Mental status exam: General Appearance: Patient appears to be stated age is alert, pleasant, and cooperative. Patient is in no acute distress and has improved hygiene and grooming Behavior: Patient is calmly seated without any agitated behavior. Speech: Patient's speech is fluent and nonpressured. Mood/Affect: Patient reports their mood is "good", affect is congruent and euthymic, more reactive than previous encounter. Suicidality/Homicidality: Patient denies having any suicidal or homicidal ideation intent or plan. Perceptions: Patient denies any auditory or visual hallucinations. Though content/process: There is no evidence of any delusional thought content and thought process is linear and goal-directed. Memory and concentration: AOX3, grossly intact for the purposes of this session. Can spell "WORLD" backwards correctly. Judgment and insight: Chronically poor, however has improved with guarded prognosis Impression: Depression unspecified, likely substance-induced Alcohol dependence Tobacco use disorder Generalized anxiety disorder Plan: -Continue with discharge today as patient has improved and stabilized psychiatrically and is not currently an imminent threat to themself and/or others. Patient will remain at chronically elevated risk for harm to self and/or others due to their impulsivity and substance abuse. -Continue medications: Paxil 40 mg daily, naltrexone 50 mg at bedtime, lithium 150 mg twice daily -Patient was counseled on the need for medication compliance and appropriate follow-up at mental health and also primary care for medical issues. Patient verbalized understanding and agreed. -Social work to help coordinate patients discharge today arrange for and conduct family meeting to ensure safety upon discharge and answer any questions/concerns. also to ensure safe home environment that guns/weapons are either removed from the home or locked away. Social work also to arrange for patients follow up appointments with [facility] for psychiatric care along with follow up with primary care provider. -Patient counseled on abstaining from recreational drugs and marijuana and alcohol. Was informed/educated on the adverse effects on their physical and mental health. Patient verbally agreed and understood. Patient elected to do inpatient rehab at [facility] for maintenance of his sobriety -Patient was instructed to return to the hospital or seek immediate medical care if their psychiatric or medical symptoms do worsen or reoccur. Abnormal Labs 06/27/24 07:17 Sodium 136 L Chloride 108 H BUN 4 L Creatinine 0.59 L Glucose 102 H Total Protein 5.8 L Albumin 3.4 L Cholesterol 205.00 H HDL Cholesterol 94.50 H Vital Signs Temp 98.3 F 07/01/24 06:52 Pulse 62 07/03/24 10:19 Resp 20 07/03/24 10:19 BP 109/68 07/03/24 10:19 Pulse Ox 97 07/01/24 06:52 FiO2 Allergies Allergy/AdvReac Type Severity Reaction Status Date / Time No Known Allergies Allergy Verified 04/22/24 18:47 Plan - Discharge Summary Discharge Rx Participant: Yes New Discharge Prescriptions: New PARoxetine [Paxil] 40 mg PO DAILY 30 Days #60 tab Naltrexone HCl [Revia] 50 mg PO HS 30 Days #30 tab Thiamine [Vitamin B-1] 100 mg PO DAILY 30 Days #30 tab Prasugrel [Effient] 10 mg PO DAILY 30 Days #30 tab Folic Acid 1 mg PO DAILY 30 Days #30 tab Multivitamins, Thera [Multivitamin (formulary)] 1 each PO DAILY 30 Days #30 tab Famotidine [Pepcid] 20 mg PO BID 30 Days #60 tab [place] Carbonate 150 mg PO BID 30 Days #60 capsule Continue Naltrexone HCl [Revia] 50 mg PO HS 30 Days #30 tab PARoxetine HCL [Paxil] 40 mg PO HS Atorvastatin [Lipitor] 80 mg PO HS 30 Days #30 tab lisinopriL [Zestril] 2.5 mg PO DAILY 30 Days #30 tab Thiamine [Vitamin B-1] 100 mg PO DAILY 30 Days #30 tab Aspirin 81 mg PO DAILY 30 Days #30 tab Metoprolol Succinate (ER) [Toprol XL] 50 mg PO DAILY 30 Days #30 tab Discontinued Prasugrel [Effient] 10 mg PO DAILY tab [place] Carbonate 150 mg PO BID Discharge Medication List Naltrexone HCl [Revia] 50 mg PO HS 30 Days #30 tab 06/02/24 [Rx] Thiamine [Vitamin B-1] 100 mg PO DAILY 30 Days #30 tab 06/02/24 [Rx] PARoxetine HCL [Paxil] 40 mg PO HS 06/27/24 [History] Aspirin 81 mg PO DAILY 30 Days #30 tab 07/02/24 [Rx] Atorvastatin [Lipitor] 80 mg PO HS 30 Days #30 tab 07/02/24 [Rx] Famotidine [Pepcid] 20 mg PO BID 30 Days #60 tab 07/02/24 [Rx] Folic Acid 1 mg PO DAILY 30 Days #30 tab 07/02/24 [Rx] Metoprolol Succinate (ER) [Toprol XL] 50 mg PO DAILY 30 Days #30 tab 07/02/24 [Rx] Multivitamins, Thera [Multivitamin (formulary)] 1 each PO DAILY 30 Days #30 tab 07/02/24 [Rx] Naltrexone HCl [Revia] 50 mg PO HS 30 Days #30 tab 07/02/24 [Rx] PARoxetine [Paxil] 40 mg PO DAILY 30 Days #60 tab 07/02/24 [Rx] Prasugrel [Effient] 10 mg PO DAILY 30 Days #30 tab 07/02/24 [Rx] Thiamine [Vitamin B-1] 100 mg PO DAILY 30 Days #30 tab 07/02/24 [Rx] lisinopriL [Zestril] 2.5 mg PO DAILY 30 Days #30 tab 07/02/24 [Rx] [place] Carbonate 150 mg PO BID 30 Days #60 capsule 07/03/24 [Rx] Follow up Appointment(s)/Referral(s): [facility] [Outside] - 07/03/24 12:00 pm David Reeves DO [REFERRING] - 1 Week Patient Instructions/Handouts: How to Stop Smoking (DC), Depression (DC), G eneralized Anxiety Disorder (GEN), Abuse of Alcohol (DC) Activity/Diet/Wound Care/Special Instructions: Avoid the use of street drugs and alcohol. Take all medications as prescribed. When you are in need of refills on your medications, please contact your medical provider and/or outpatient psychiatrist/provider to have this done. Please go to your scheduled outpatient appointment for aftercare treatment. If symptoms return or become worse, call the crisis line at and/or go to the nearest emergency room for evaluation. National Suicide Hotline 378 Discharge Disposition: HOME SELF-CARE
== END 2024-07-03 10:45 | disposition home or self-care (01) | DRG 775 ==
LOC: 3MHU 06-27 05:00
PROVIDERS: ADMIT Psychiatry & Neurology Psychiatry; ATTEND Psychiatry & Neurology Psychiatry
PROC: HZ2ZZZZ Detoxification Services for Substance Abuse Treatment (ICD-10-PCS; principal; 2024-06-27)
DX: F10.24 Alcohol dependence with alcohol-induced mood disorder (principal); F41.1 Generalized anxiety disorder; R45.851 Suicidal ideations; I10 Essential (primary) hypertension; I25.10 Atherosclerotic heart disease of native coronary artery without angina pectoris; I25.2 Old myocardial infarction; K21.9 Gastro-esophageal reflux disease without esophagitis; K59.00 Constipation, unspecified; E78.5 Hyperlipidemia, unspecified; F17.210 Nicotine dependence, cigarettes, uncomplicated; Z79.02 Long term (current) use of antithrombotics/antiplatelets; Z79.82 Long term (current) use of aspirin; Z79.899 Other long term (current) drug therapy; Z91.148 Patient's other noncompliance with medication regimen for other reason; Z95.5 Presence of coronary angioplasty implant and graft; Z71.51 Drug abuse counseling and surveillance of drug abuser
CPT/HCPCS: 80053; 80061; 80306; 82248; 83036; 84443; 85025